=== PATIENT | female | born 1945 | race Caucasian/White ===

== ENCOUNTER 2022-11-06 12:42 | Inpatient (IN) | payer OTHER ==
--- OUTSIDE RECORDS SUMMARY | 2022-11-06 12:49 | XMS REPORT | Continuity of Care Document ---
:1945 Author Organization [facility] t Address [address] [place] [address] Dr. Ar[address]. [address] [place] [address] Care Team Providers Name Role Phone MAXI SIBLEY Primary Care Physician Unavailable SADI VILLEAGS Attending Clinician Unavailable VICK HART Attending Clinician Unavailable VICK HART Attending Clinician Unavailable JAMEEL DAWN Attending Clinician Unavailable Patti Schmitz Kelcey Attending Clinician Unavailable MAGALY CALDERON Attending Clinician Unavailable Edmundo BOYD, Katie Winston Attending Clinician Unavailable JEFFERY ODOM Attending Clinician Unavailable Jeffery Odom MD Attending Clinician Irlanda Sky DO Attending Clinician ENRICO GEORGE Attending Clinician Unavailable Counseling, 1st Floor Financial Attending Clinician UnavailEnrico Donald MD Attending Clinician Sadi Villegas MD Attending Clinician Doctor Unassigned, [place] Attending Clinician Unavailable Magaly Vázquez Attending Clinician Mary Camara Attending Clinician JO ANN SCHMITZ Attending Clinician Unavailable Jo Ann Schmitz DO Attending Clinician Only, Adc Test Attending Clinician Unavailable MELVI PETERSEN Attending Clinician Unavailable Melvi Garcia Attending Clinician VIVIEN BANEGAS Attending Clinician Unavailable MAXI SIBLEY Attending Clinician Unavailable Maxi Suarez Attending Clinician IRLANDA SKY Attending Clinician Unavailable Oksana Jimenez Attending Clinician Dave Mo MD Attending Clinician Lab, Ang - Db Attending Clinician Unavailable ORIN RANKIN Attending Clinician Unavailable Brown CLINICAL SALES CONSULTANT, Deyanira K Attending Clinician Unavailable Orin Rankin MD Attending Clinician Oswaldo PT, Sangeeta Weber Attending Clinician Unavailable Vishal Dillard PT, Carie Attending Clinician Unavailable Lauren Gray MD Attending Clinician LAUREN GRAY Attending Clinician Unavailable SARA ARAGON Attending Clinician Unavailable MARY HAMILTON Attending Clinician Unavailable IRMA ANTONIO Attending Clinician Unavailable IRMA ANTONIO Attending Clinician Unavailable FOREST RIBEIRO Attending Clinician Unavailable ADA HERNANDEZ Attending Clinician Unavailable KAROLYN ASTORGA Attending Clinician Unavailable LOIS DYKES Attending Clinician Unavailable SADI VILLEGAS Admitting Clinician Unavailable VICK HART Admitting Clinician Unavailable JAMEEL DAWN Admitting Clinician Unavailable Patti Schmitz Kelcey Admitting Clinician Unavailable IRLANDA SKY Admitting Clinician Unavailable Irlanda Sky DO Admitting Clinician JO ANN SCHMITZ Admitting Clinician Unavailable MELVI PETERSEN Admitting Clinician Unavailable DAVE MO Admitting Clinician Unavailable Dave Mo MD Admitting Clinician MARY HAMILTON Admitting Clinician Unavailable LOIS DYKES Admitting Clinician Unavailable Payers Payer Name Policy Type Policy Number Effective Date Expiration Date S [place] MEDICARE PART A [id number] 2011 \\T\\ B 00:00:00 [facility] [id number] Problems Condition Condition Condition Status Onset Resolution Last Treating Co mments Source Name Details Category Date Date Treatment Clinician Date 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 Added automatic ally from request for surgery [id number] Fall, Fall, Disease Active 2021-11 Univers initial initial 2-08 [place] Primary Primary Disease Active Univers hypertensi hypertensi 9-06 it y of on on 00:00: [place] [facility] PAD PAD Disease Active Univers (periphera (periphera 7-15 it y of l artery l artery 00:00: [place] disease) disease) 00 Medica l Branch Athscl Athscl Disease Active Univers [place] 7-15 ity of arteries arteries 00:00: [place] of right of right 00 Medica l leg w leg w Branch ulcer oth ulcer oth prt foot prt foot Acute Acute Disease Active Univers hematogeno hematogeno 7-15 it y of us us 00:00: [place] osteomyeli osteomyeli 00 Me dical tis, tis, Branch unspecifie unspecifie d site d site Open wound Open wound Disease Active U nivers of right of right 7-06 ity of foot, foot, 00:00: [place] subsequent subsequent 00 Me dical encounter encounter [facility] Disease Active Unive rs discharge discharge 7-06 ity of follow-up follow-up 00:[place] [facility] [place] Cellulitis Cellulitis Disease Active U nivers of right of right 6-26 ity of foot foot 00:00: [place] 00 Medical Branch Dementia Dementia Disease Active Unive rs without without 4-18 ity of behavioral behavioral [place] disturb[place] disturbanc 00 Me dical e, e, Branch unspecifie unspecifie d dementia d dementia type type Screening Screening Disease Active Uni vers for for 4-18 ity of thyroid thyroid 00:00: [place] disorder disorder 00 Medica l Branch COVID-19 COVID-19 Disease Active Unive rs ruled out ruled out 4-18 ity of by by 00:00: [place] laboratory laboratory 00 Me dical testing testing Branch History of History of Disease Active U nivers skin skin 7-21 ity of cancer cancer 00:00: [place] [facility] History of History of Disease Active U nivers alcohol alcohol 7-21 ity of abuse abuse 00:00: [place] 00 [facility] Branch 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 7-11 it y of 00:00: [place] [facility] Memory Memory Disease Active Univers impairment impairment it y of [facility] Arthritis Arthritis Disease Active Uni vers ity of [facility] Hearing Hearing Disease Active Univers loss loss ity of [facility] Hypertensi Hypertensi Disease Active U nivers on on ity of [facility] Allergies, Adverse Reactions, Alerts Allergy Allergy Status Severity Reaction(s) Onset Inactive Treating Comm ents Source Name Type Date Date Clinician NO KNOWN Drug Active Univers ALLERGIE Class ity of S [facility] Social History Social Habit Start Date Stop Date Quantity Comments Source History [facility] o f Alcohol Frequency [facility] edical Branch Exposure to 2022-10-08 2022-10-18 Not sure [facility] SARS-CoV-2 00:00:00 08:16:00 [facility] (event) [place] Alcohol intake 2022-10-18 2022-10-18 3 /d University of 00:00:00 00:00:00 [facility] Tobacco use and 2021-09-05 2021-09-05 Smokeless tobacco Un iversity of exposure 00:00:00 00:00:00 non-user [facility] Alcohol Comment 2021-03-14 2021-03-14 1 drinks, once a Uni versity of 00:00:00 00:00:[address] [facility] drinking 2 years Branch ago. History [facility] 2019-05-15 2019-05-15 5 University o f Alcohol Std 00:00:00 00:00:00 [place] Medical Drinks Branch History [facility] 2019-05-15 2019-05-15 4 University o f Alcohol Binge 00:00:00 00:00:00 [place] Medic al Branch History of 1999-05-15 Cigarette Smoker Universi ty of tobacco use 00:00:00 [facility] Sex [birth year] Universit y of 00:00:00 00:00:00 [facility] Smoking Status Start Date Stop Date Source Ex-smoker 2021-09-05 00:00:00 2021-09-05 00:00:00 Universi ty of [facility] Medications Ordered Filled Start Stop Current Ordering Indication Dosage Frequency Signature Comments Components Source Medication Medication Date Date Medication? Clinician (SIG) Name Name rivastigmin 2021-11 Yes 4.5mg 4.5 mg, Un zac e tartrate 12-20 Oral, ity of (EXELON) 15:00: QAM+PM, [place] capsule 4.5 00 First dose Me dical mg on Sat10/19/22 at 0900, Until Discontinu ed losartan 2021-11 Yes 50mg 50 mg, Univers (COZAAR) 2 Oral, ity of tablet 50 15:00: DAILY, [place] mg 00 First dose Medical on Sat10/19/22 at 0900, Until Discontinu ed, Routine collagenase 2021-11 Yes Topical Uni vers (SANTYL) 12-20 (Apply To ity of ointment 15:00: Affected [place] 00 Areas), Medical DAILY, Branch First dose on Sat10/19/22 at 0900, Until Discontinu ed, Routine cholecalcif 2021-11 Yes 5000U 5,000 Univ ers barbara 2 Units, ity of (vitamin 15:00: Oral, [place] D3) tablet 00 DAILY, Medical 5,000 Units First dose Br anch on Sat10/19/22 at 0900, Until Discontinu ed amLODIPine 2021-11 Yes 5mg 5 mg, Univer s (NORVASC) 2 Oral, ity of tablet 5 mg 15:00: [place]ILY, [place] 00 First dose Medical on Sat10/19/22 at 0900, Until Discontinu ed, Routine docusate 2021-11 Yes 100mg 100 mg, Unive rs (COLACE) 209 Oral, ity of capsule 100 15:00: DAILY, [place] mg 00 First dose Medical on Sat10/19/22 at 0900, Until Discontinu ed, Routine enoxaparin 2021-11 Yes 40mg 40 mg, Unive rs (LOVENOX) 2 Subcutaneo ity of injection 15:00: [place]ILY, [place] 40 mg 00 First dose Medical on Sat10/19/22 at 0900, Until Discontinu ed, Routine NaCl 0.9% 2021-11 No 1000mL at 75 Univ ers (NS) IV 12-20 12-09 mL/hr, IV ity of infusion 14:45: 18:59 Infusion, [place] as 1,000 mL 00 :00 CONTINUOUS Medic al , Starting Branch on Sat10/19/22 at 0845, Until Sat10/19/22 at 1259, Routine lactobacill 2021-11 Yes .5mg 0.5 mg, Uni vers us 209 Oral, BID, ity of acidophilus 14:00: First dose [place] tablet 0.5 00 on Fri Medical mg 10/19/22 at Branch 0800, Until Discontinu ed cilostazoL 2021-11 Yes 50mg 50 mg, Unive rs (PLETAL) 2 Oral, BID, ity o f tablet 50 14:00: [place] mg 00 on Sat Medical 10/19/22 at Branch 0800, Until Discontinu ed, Routine HYDROcodone 2021-11 Yes 1{tbl} 1 tablet, Univers -acetaminop 12-20 Oral, ity of hen (NORCO) 00:08: Q6HPRN, [place] as 10-325 mg 12 Starting Medica l tablet 1 on [facility] Branch tablet 10/18/22 at 1808, Until Discontinu ed, Routine, Pain (scale 7-10) traMADoL 2021-11- Yes 50mg 50 mg, Univer s (ULTRAM) 12-20 12-11 Oral, ity of tablet 50 00:08: 00:07 Q8HPRN, [place] mg 06 :06 Starting Medical on Kadi Branch 10/18/22 at 1808, Until 10/20/22 at 1807, Routine, Pain (scale 4-6) acetaminoph 2021-11 Yes 650mg 650 mg, Un zac en 209 Oral, ity of (TYLENOL) 00:08: Q6HPRN, [place] tablet 650 01 Starting Medic al mg on Kadi Branch 10/18/22 at 1808, Until Discontinu ed, Routine, Pain (scale 1-3) NaCl 0.9% 2021-11- No 1000mL at 100 Uni vers (NS) IV 12-19 12-09 mL/hr, IV ity of infusion 19:00: 14:40 Infusion, [place] as 1,000 mL 00 :21 CONTINUOUS Medic al , Starting Branch on Kadi 10/18/22 at 1300, Until Sat10/19/22 at 0840, Routine iopamidol 2021-11- No [id number] 90mL 90 mL, Un zac (ISOVUE 12-19 12-08 Intravenou ity o f 370-500 mL) 16:45: 16:45 s, ONCE, 1 [place] injection 00 :00 dose, On Medica l 90 mL [place] Branch 10/18/22 at 1045, Routine NaCl 0.9% 2021-11- No 1000mL at 999 Uni vers (NS) bolus 12-19 12-08 mL/hr, ity of infusion 15:15: 21:08 1,000 mL, [place] as 1,000 mL 00 :00 IV Medical Piggyback, Branch ONCE, 1 dose, On Kadi 10/18/22 at 0915, STAT peg-electro 2021-11 Yes Take as Uni vers lyte soln 1-29 directed ity of 236-22.74-6 00:00: [place] .74 -5.86 00 colonoscop Medi joanne gram y Branch solution peg-electro 2021-11 Yes Take as Uni vers lyte soln -29 directed ity of 236-22.74-6 00:00: [place] .74 -5.86 00 colonoscop Medi joanne gram y Branch solution peg-electro 2021-11 Yes Take as Uni vers lyte soln 1-29 directed ity of 236-22.74-6 00:00: [place] .74 -5.86 00 colonoscop Medi joanne gram y Branch solution peg-electro 2021-11 Yes Take as Uni vers lyte soln -29 directed ity of 236-22.74-6 00:00: [place] .74 -5.86 00 colonoscop Medi joanne gram y Branch solution peg-electro 2021-11 Yes Take as Uni vers lyte soln -29 directed ity of 236-22.74-6 00:00: [place] .74 -5.86 00 colonoscop Medi joanne gram y Branch solution LOSARTAN 50 2021-11 Yes [id number] TAKE ONE Univers mg tablet 0-11 TABLET BY ity o f 00:00: MOUTH DAILY Medical Branch AMLODIPINE 2021-11 Yes [id number] TAKE ONE Univers 5 mg tablet 0-11 TABLET BY ity of 00:00: MOUTH DAILY Medical Branch LOSARTAN 50 2021-11 Yes [id number] TAKE ONE Univers mg tablet 0-11 TABLET BY ity o f 00:00: MOUTH [place] DAILY Medical Branch AMLODIPINE 2021-11 Yes [id number] TAKE ONE Univers 5 mg tablet 0-11 TABLET BY ity of 00:00: MOUTH [place] DAILY Medical Branch LOSARTAN 50 2021-11 Yes [id number] TAKE ONE Univers mg tablet 0-11 TABLET BY ity o f 00:00: MOUTH DAILY Medical Branch AMLODIPINE 2021-11 Yes [id number] TAKE ONE Univers 5 mg tablet 0-11 TABLET BY ity of 00:00: MOUTH [place] DAILY Medical Branch LOSARTAN 50 2021-11 Yes [id number] TAKE ONE Univers mg tablet 0-11 TABLET BY ity o f 00:00: MOUTH DAILY Medical Branch AMLODIPINE 2021-11 Yes [id number] TAKE ONE Univers 5 mg tablet 0-11 TABLET BY ity of 00:00: MOUTH DAILY Medical Branch LOSARTAN 50 2021-11 Yes [id number] TAKE ONE Univers mg tablet 0-11 TABLET BY ity o f 00:00: MOUTH DAILY Medical Branch AMLODIPINE 2021-11 Yes [id number] TAKE ONE Univers 5 mg tablet 0-11 TABLET BY ity of 00:00: MOUTH DAILY Medical Branch LOSARTAN 50 2021-11 Yes [id number] TAKE ONE Univers mg tablet 0-11 TABLET BY ity o f 00:00: MOUTH DAILY Medical Branch AMLODIPINE 2021-11 Yes [id number] TAKE ONE Univers 5 mg tablet 0-11 TABLET BY ity of 00:00: MOUTH DAILY Medical Branch LOSARTAN 50 2021-11 Yes [id number] TAKE ONE Univers mg tablet 0-11 TABLET BY ity o f 00:00: MOUTH DAILY Medical Branch AMLODIPINE 2021-11 Yes [id number] TAKE ONE Univers 5 mg tablet 0-11 TABLET BY ity of 00:00: MOUTH DAILY Medical Branch LOSARTAN 50 2021-11 Yes [id number] TAKE ONE Univers mg tablet 0-11 TABLET BY ity o f 00:00: MOUTH [place] DAILY Medical Branch AMLODIPINE 2021-11 Yes [id number] TAKE ONE Univers 5 mg tablet 0-11 TABLET BY ity of 00:00: MOUTH DAILY Medical Branch LOSARTAN 50 2021-11 Yes [id number] TAKE ONE Univers mg tablet 0-11 TABLET BY ity o f 00:00: MOUTH DAILY Medical Branch AMLODIPINE 2021-11 Yes [id number] TAKE ONE Univers 5 mg tablet 0-11 TABLET BY ity of 00:00: MOUTH DAILY Medical Branch LOSARTAN 50 2021-11 Yes [id number] TAKE ONE Univers mg tablet 0-11 TABLET BY ity o f 00:00: MOUTH DAILY Medical Branch AMLODIPINE 2021-11 Yes [id number] TAKE ONE Univers 5 mg tablet 0-11 TABLET BY ity of 00:00: DAILY Medical Branch LOSARTAN 50 2021-11 Yes [id number] TAKE ONE Univers mg tablet 0-11 TABLET BY ity o f 00:00: MOUTH DAILY Medical Branch AMLODIPINE 2021-11 Yes [id number] TAKE ONE Univers 5 mg tablet 0-11 TABLET BY ity of 00:00: DAILY Medical Branch LOSARTAN 50 2021-11 Yes [id number] TAKE ONE Univers mg tablet 0-11 TABLET BY ity o f 00:00: DAILY Medical Branch AMLODIPINE 2021-11 Yes [id number] TAKE ONE Univers 5 mg tablet 0-11 TABLET BY ity of 00:00: DAILY Medical Branch LOSARTAN 50 2021-11 Yes [id number] TAKE ONE Univers mg tablet 0-11 TABLET BY ity o f 00:00: DAILY Medical Branch AMLODIPINE 2021-11 Yes [id number] TAKE ONE Univers 5 mg tablet 0-11 TABLET BY ity of 00:00: DAILY Medical Branch LOSARTAN 50 2021-11 Yes [id number] TAKE ONE Univers mg tablet 0-11 TABLET BY ity o f 00:00: DAILY Medical Branch AMLODIPINE 2021-11 Yes [id number] TAKE ONE Univers 5 mg tablet 0-11 TABLET BY ity of 00:00: DAILY Medical Branch LOSARTAN 50 2021-11 Yes [id number] TAKE ONE Univers mg tablet 0-11 TABLET BY ity o f 00:00: MOUTH DAILY Medical Branch AMLODIPINE 2021-11 Yes [id number] TAKE ONE Univers 5 mg tablet 0-11 TABLET BY ity of 00:00: MOUTH DAILY Medical Branch LOSARTAN 50 2021-11 Yes [id number] TAKE ONE Univers mg tablet 0-11 TABLET BY ity o f 00:00: DAILY Medical Branch AMLODIPINE 2021-11 Yes [id number] TAKE ONE Univers 5 mg tablet 0-11 TABLET BY ity of 00:00: MOUTH [place] DAILY Medical Branch LOSARTAN 50 2021- Yes [id number] TAKE ONE Univers mg tablet 0-11 TABLET BY ity o f 00:00: MOUTH [place] DAILY Medical Branch AMLODIPINE 2021- Yes [id number] TAKE ONE Univers 5 mg tablet 0-11 TABLET BY ity of 00:00: MOUTH [place] DAILY Medical Branch LOSARTAN 50 2021- Yes [id number] TAKE ONE Univers mg tablet 0-11 TABLET BY ity o f 00:00: MOUTH [place] DAILY Medical Branch AMLODIPINE 2021- Yes [id number] TAKE ONE Univers 5 mg tablet 0-11 TABLET BY ity of 00:00: MOUTH [place] DAILY Medical Branch cilostazoL 2021-11 Yes [id number] 50mg Take 1 Univers 50 mg 0-06 tablet by ity of tablet 00:00: mouth in [place] the Medical morning Branch and 1 tablet in the evening. cilostazoL 2021-11 Yes [id number] 50mg Take 1 Univers 50 mg 0-06 tablet by ity of tablet 00:00: mouth in [place] the Medical morning Branch and 1 tablet in the evening. cilostazoL 2021-11 Yes [id number] 50mg Take 1 Univers 50 mg 0-06 tablet by ity of tablet 00:00: mouth in [place] the Medical morning Branch and 1 tablet in the evening. cilostazoL 2021-11 Yes [id number] 50mg Take 1 Univers 50 mg 0-06 tablet by ity of tablet 00:00: mouth in [place] the Medical morning Branch and 1 tablet in the evening. cilostazoL 2021-11 Yes [id number] 50mg Take 1 Univers 50 mg 0-06 tablet by ity of tablet 00:00: mouth in [place] the Medical morning Branch and 1 tablet in the evening. cilostazoL 2021-11 Yes [id number] 50mg Take 1 Univers 50 mg 0-06 tablet by ity of tablet 00:00: mouth in [place] the Medical morning Branch and 1 tablet in the evening. cilostazoL 2021-11 Yes [id number] 50mg Take 1 Univers 50 mg 0-06 tablet by ity of tablet 00:00: mouth in [place] the Medical morning Branch and 1 tablet in the evening. cilostazoL 2021-11 Yes [id number] 50mg Take 1 Univers 50 mg 0-06 tablet by ity of tablet 00:00: mouth in [place] 00 the Medical morning Branch and 1 tablet in the evening. cilostazoL 2021-11 Yes [id number] 50mg Take 1 Univers 50 mg 0-06 tablet by ity of tablet 00:00: mouth in [place] 00 the Medical morning Branch and 1 tablet in the evening. cilostazoL 2021-11 Yes [id number] 50mg Take 1 Univers 50 mg 0-06 tablet by ity of tablet 00:00: mouth in [place] 00 the Medical morning Branch and 1 tablet in the evening. cilostazoL 2021-11 Yes [id number] 50mg Take 1 Univers 50 mg 0-06 tablet by ity of tablet 00:00: mouth in [place] [address] the Medical morning Branch and 1 tablet in the evening. cilostazoL 2021-11 Yes [id number] 50mg Take 1 Univers 50 mg 0-06 tablet by ity of tablet 00:00: mouth in [place] [address] the Medical morning Branch and 1 tablet in the evening. cilostazoL 2021-11 Yes [id number] 50mg Take 1 Univers 50 mg 0-06 tablet by ity of tablet 00:00: mouth in [place] [address] the Medical morning Branch and 1 tablet in the evening. cilostazoL 2021-11 Yes [id number] 50mg Take 1 Univers 50 mg 0-06 tablet by ity of tablet 00:00: mouth in [place] [address] the Medical morning Branch and 1 tablet in the evening. cilostazoL 2021-11 Yes [id number] 50mg Take 1 Univers 50 mg 0-06 tablet by ity of tablet 00:00: mouth in [place] [address] the Medical morning Branch and 1 tablet in the evening. cilostazoL 2021-11 Yes [id number] 50mg Take 1 Univers 50 mg 0-06 tablet by ity of tablet 00:00: mouth in [place] [address] the Medical morning Branch and 1 tablet in the evening. cilostazoL 2021-11 Yes [id number] 50mg Take 1 Univers 50 mg 0-06 tablet by ity of tablet 00:00: mouth in [place] [address] the Medical morning Branch and 1 tablet in the evening. cilostazoL 2021-11 Yes [id number] 50mg Take 1 Univers 50 mg 0-06 tablet by ity of tablet 00:00: mouth in [place] [address] the Medical morning Branch and 1 tablet in the evening. cilostazoL 2021-11 Yes [id number] 50mg Take 1 Univers 50 mg 0-06 tablet by ity of tablet 00:00: mouth in [place] [address] the [facility] morning [place] and 1 tablet in the evening. cilostazoL 2021-11 Yes [id number] 50mg Take 1 Univers 50 mg 0-06 tablet by ity of tablet 00:00: mouth in [place] [address] the [facility] morning [place] and 1 tablet in the evening. cilostazoL 2021-11 Yes [id number] 50mg Take 1 Univers 50 mg 0-06 tablet by ity of tablet 00:00: mouth in [place] [address] the [facility] and 1 tablet in the evening. iopamidol 2021- No [id number] 56mL 56 mL, U nivers (ISOVUE 08-02 Intravenou ity o f 370-500 mL) 14:33: 14:34 s, ONCE, 1 [place] injection 00 :00 dose, On Medica l 56 mL [place] Branch 08/02/22 at 0945, Routine pantoprazol 2021- No 40mg 40 mg, Uni vers e 08-02 Slow IV ity of (PROTONIX) 13:45: 13:35 Push, [place] injection 00 :00 ONCE, 1 Medical 40 mg dose, On Branch Kadi 08/02/22 at 0845 omeprazole 2021-0 2- No [id number] 20mg Take 1 Univers 20 mg 9-22 10-23 capsule by ity of capsule 00:00: 04:59 mouth in [place] 00 :00 [facility] for 30 days. omeprazole 2021-0 2- No [id number] 20mg Take 1 Univers 20 mg 9-22 10-23 capsule by ity of capsule 00:00: 04:59 mouth in [place] 00 :00 [facility] for 30 days. omeprazole 2-0 2022- No [id number] 20mg Take 1 Univers 20 mg 9-22 10-23 capsule by ity of capsule 00:00: 04:59 mouth in [place] 00 :00 [facility] for 30 days. omeprazole 2-0 2022- No [id number] 20mg Take 1 Univers 20 mg 9-22 10-23 capsule by ity of capsule 00:00: 04:59 mouth in [place] 00 :00 [facility] for 30 days. omeprazole 2021- No [id number] 20mg Take 1 Univers 20 mg 08-02 capsule by ity of capsule 00:00: 04:59 mouth in [place] 00 :00 the Medical morning Branch for 30 days. lactated 0 Yes 1000mL at 75 Univer s ringers IV 9-06 mL/hr, ity of infusion 16:15: 1,000 mL, [place] 1,000 mL 00 IV Medical Infusion, Branch CONTINUOUS , Starting on Sat07/17/22 at 1115, Until Discontinu ed, Routine, PACU lactated 2021- No 1000mL at 75 Unive rs ringers IV 07-17 09-07 mL/hr, ity of infusion 16:15: 00:57 1,000 mL, [place] as 1,000 mL 00 :01 IV Medical Infusion, Branch CONTINUOUS , Starting on Sat07/17/22 at 1115, Until Sat07/17/22 at 1957, Routine, PACU FENTanyl PF Yes 25ug 25 mcg, Uni vers (SUBLIMAZE 07-17 Slow IV ity of (PF)) 16:11: Push, [place] injection 36 Q5MIN PRN, Medi joanne 25 mcg 4 doses, Branch Starting on Sat07/17/22 at 1111, Until Discontinu ed, Routine, Pain (scale 4-6), PACU ondansetron Yes 4mg 4 mg, Slow Univers (ZOFRAN 07-17 IV Push, ity of (PF)) 16:11: PRN, 1 [place] injection 4 36 dose, Medical mg Starting Branch on Sat07/17/22 at 1111, Until Discontinu ed, Routine, Nausea and Vomiting (N/V), PACU FENTanyl PF 2021- No 25ug 25 mcg, Un zac (SUBLIMAZE 07-1707 Slow IV ity o f (PF)) 16:11: 00:57 [place], [place] injection 36 :01 Q5MIN PRN, Medi joanne 25 mcg 4 doses, Branch Starting on Sat07/17/22 at 1111, Until Sat07/17/22 at 1957, Routine, Pain (scale 4-6), PACU ondansetron 2021- No 4mg 4 mg, Slow Univers (ZOFRAN 07-17 IV Push, ity of (PF)) 16:11: 00:57 PRN, 1 [place] injection 4 36 :01 dose, Medical mg Starting Branch on Sat07/17/22 at 1111, Until Sat07/17/22 at 1957, Routine, Nausea and Vomiting (N/V), PACU iodixanoL 2021- No PRN, Univers (VISIPAQUE 07-17 Starting ity of 270-150 mL) 15:20: 20:22 on Tue [place] as injection 00 :52 07/17/22 at Medic al 1020, Branch Until Sat07/17/22 at 1522, Routine, Intra-op heparin 2021- No PRN, Univers 1,000 07-17 Starting ity of unit/mL 15:17: 20:22 on e [place] 10,000 00 :52 07/17/22 at Medical Units in 1017, Branch NaCl 0.9% Intra-op (NS) 1,000 mL OR irrigation lidocaine 2021- No PRN, Univers 1% (PF) 07-17 Starting ity of (XYLOCAINE) 15:16: 20:22 on Tue [place] as injection 00 :52 07/17/22 at Medic al 1016, Branch Until Sat07/17/22 at 1522, Routine, Intra-op collagenase Yes [id number] Apply to Univers 250 6-29 [id number] affected ity of unit/gram 00:00: area(s) [place] ointment 00 daily. Medical Branch collagenase Yes [id number] Apply to Univers 250 6-29 [id number] affected ity of unit/gram 00:00: area(s) [place] ointment 00 daily. Medical Branch collagenase Yes [id number] Apply to Univers 250 6-29 [id number] affected ity of unit/gram 00:00: area(s) [place] ointment 00 daily. Medical Branch collagenase Yes [id number] Apply to Univers 250 6-29 [id number] affected ity of unit/gram 00:00: area(s) [place] ointment 00 daily. Medical Branch collagenase Yes [id number] Apply to Univers 250 6-29 [id number] affected ity of unit/gram 00:00: area(s) [place] ointment 00 daily. Medical Branch collagenase 2021-0 Yes [id number] Apply to Univers 250 6-29 [id number] affected ity of unit/gram 00:00: area(s) [place] ointment 00 daily. Medical Branch collagenase 2021-0 Yes [id number] Apply to Univers 250 6-29 [id number] affected ity of unit/gram 00:00: area(s) [place] ointment 00 daily. [facility] collagenase Yes [id number] Apply to [facility] 250 6-29 [id number] affected ity of unit/gram 00:00: area(s) [place] ointment 00 daily. [facility] collagenase 2021-0 Yes [id number] Apply to [facility] 250 6-29 [id number] affected [facility] of unit/gram 00:00: area(s) [place] ointment 00 daily. [facility] collagenase 2021- Yes [id number] Apply to [facility] 250 6-29 [id number] affected [facility]y of unit/gram 00:00: area(s) [place] ointment 00 daily. [facility] collagenase 2021- Yes [id number] Apply to [facility] 250 6-29 [id number] affected [facility]y of unit/gram 00:00: area(s) [place] ointment 00 daily. [facility] collagenase 2021-0 Yes [id number] Apply to [facility] 250 6-29 [id number] affected [facility]y of unit/gram 00:00: area(s) [place] ointment 00 daily. [facility] collagenase 2021- Yes [id number] Apply to [facility] 250 6-29 [id number] affected [facility]y of unit/gram 00:00: area(s) [place] ointment 00 daily. [facility] collagenase 2021-0 Yes [id number] Apply to [facility] 250 6-29 [id number] affected [facility]y of unit/gram 00:00: area(s) [place] ointment 00 daily. [facility] collagenase 2021-0 Yes [id number] Apply to [facility] 250 6-29 [id number] affected [facility]y of unit/gram 00:00: area(s) [place] ointment 00 daily. [facility] collagenase 2021-0 Yes [id number] Apply to [facility] 250 6-29 [id number] affected [facility]y of unit/gram 00:00: area(s) [place] ointment 00 daily. [facility] collagenase 2021-0 Yes [id number] Apply to [facility] 250 6-29 [id number] affected [facility]y of unit/gram 00:00: area(s) [place] ointment 00 daily. [facility] collagenase 2021-0 Yes [id number] Apply to [facility] 250 6-29 [id number] affected [facility]y of unit/gram 00:00: area(s) [place] ointment 00 daily. [facility] collagenase 2021- Yes [id number] Apply to [facility] 250 6-29 [id number] affected [facility]y of unit/gram 00:00: area(s) [place] ointment 00 daily. [facility] collagenase Yes [id number] Apply to [facility] 250 6-29 [id number] affected [facility]y of unit/gram 00:00: area(s) [place] ointment 00 daily. [facility] collagenase 2021- Yes [id number] Apply to [facility] 250 6-29 [id number] affected [facility]y of unit/gram 00:00: area(s) [place] ointment 00 daily. [facility] collagenase 2021- Yes [id number] Apply to [facility] 250 6-29 [id number] affected [facility]y of unit/gram 00:00: area(s) [place] ointment 00 daily. [facility] collagenase 2021- Yes [id number] Apply to [facility] 250 6-29 [id number] affected [facility]y of unit/gram 00:00: area(s) [place] ointment 00 daily. [facility] collagenase 2021- Yes [id number] Apply to [facility] 250 6-29 [id number] affected [facility]y of unit/gram 00:00: area(s) [place] ointment 00 daily. [facility] collagenase 2021-0 Yes [id number] Apply to [facility] 250 6-29 [id number] affected [facility]y of unit/gram 00:00: area(s) [place] ointment 00 daily. [facility] collagenase 2021-0 Yes [id number] Apply to [facility] 250 6-29 [id number] affected [facility]y of unit/gram 00:00: area(s) [place] ointment 00 daily. [facility] collagenase 2021-0 Yes [id number] Apply to [facility] 250 6-29 [id number] affected [facility]y of unit/gram 00:00: area(s) [place] ointment 00 daily. [facility] collagenase 2021-0 Yes [id number] Apply to [facility] 250 6-29 [id number] affected [facility]y of unit/gram 00:00: area(s) [place] ointment 00 daily. [facility] amLODIPine 2021-0 Yes [id number] 5mg Take 1 [facility] 5 mg tablet 4-18 tablet by ity of 00:00: mouth [place] 00 daily. [facility] losartan 50 2021-0 Yes [id number] 50mg Take 1 [facility] mg tablet 4-18 tablet by ity o f 00:00: mouth [place] 00 daily. [facility] amLODIPine 2-0 Yes [id number] 5mg Take 1 [facility] 5 mg tablet 4-18 tablet by ity of 00:00: mouth [place] 00 daily. [facility] losartan 50 2021-0 Yes [id number] 50mg Take 1 [facility] mg tablet 4-18 tablet by ity o f 00:00: mouth [place] 00 daily. [facility] amLODIPine 2-0 Yes [id number] 5mg Take 1 [facility] 5 mg tablet 4-18 tablet by ity of 00:00: mouth [place] 00 daily. [facility] losartan 50 2021-0 Yes [id number] 50mg Take 1 [facility] mg tablet 4-18 tablet by ity o f 00:00: mouth [place] 00 daily. [facility] amLODIPine 2021-0 Yes [id number] 5mg Take 1 [facility] 5 mg tablet 4-18 tablet by ity of 00:00: mouth [place] 00 daily. [facility] losartan 50 2021-0 Yes [id number] 50mg Take 1 [facility] mg tablet 4-18 tablet by ity o f 00:00: mouth [place] 00 daily. [facility] amLODIPine 2-0 Yes [id number] 5mg Take 1 [facility] 5 mg tablet 4-18 tablet by ity of 00:00: mouth [place] 00 daily. [facility] losartan 50 2021-0 Yes [id number] 50mg Take 1 [facility] mg tablet 4-18 tablet by ity o f 00:00: mouth [place] 00 daily. [facility] amLODIPine 2-0 Yes [id number] 5mg Take 1 [facility] 5 mg tablet 4-18 tablet by ity of 00:00: mouth [place] 00 daily. [facility] losartan 50 2-0 Yes [id number] 50mg Take 1 [facility] mg tablet 4-18 tablet by ity o f 00:00: mouth [place] 00 daily. [facility] amLODIPine 2-0 Yes [id number] 5mg Take 1 [facility] 5 mg tablet 4-18 tablet by ity of 00:00: mouth [place] 00 daily. [facility] losartan 50 2021-0 Yes [id number] 50mg Take 1 [facility] mg tablet 4-18 tablet by ity o f 00:00: mouth [place] 00 daily. [facility] amLODIPine 2021-0 Yes [id number] 5mg Take 1 [facility] 5 mg tablet 4-18 tablet by ity of 00:00: mouth [place] 00 daily. [facility] losartan 50 2021-0 Yes [id number] 50mg Take 1 [facility] mg tablet 4-18 tablet by ity o f 00:00: mouth [place] 00 daily. [facility] amLODIPine 2021-0 Yes [id number] 5mg Take 1 [facility] 5 mg tablet 4-18 tablet by ity of 00:00: mouth [place] 00 daily. [facility] losartan 50 2021-0 Yes [id number] 50mg Take 1 [facility] mg tablet 4-18 tablet by ity o f 00:00: mouth [place] 00 daily. [facility] amLODIPine 2021-0 Yes [id number] 5mg Take 1 [facility] 5 mg tablet 4-18 tablet by ity of 00:00: mouth [place] 00 daily. [facility] losartan 50 2021-0 Yes [id number] 50mg Take 1 [facility] mg tablet 4-18 tablet by ity o f 00:00: mouth [place] 00 daily. [facility] amLODIPine 2021-0 2- No [id number] 5mg Take 1 [facility] 5 mg tablet 4-18 10-11 tablet by it y of 00:00: 00:00 mouth [place] 00 :00 daily. [facility] losartan 50 2021-0 2022- No [id number] 50mg Take 1 [facility] mg tablet 4-18 10-11 tablet by ity of 00:00: 00:00 mouth [place] 00 :00 daily. [facility] rivastigmin 2020-0 Yes [id number] 1{patch Apply 1 [facility] e 4.6 mg/24 5-07 } Patch to ity of hour patch 00:00: skin [place] 00 daily. [facility] rivastigmin 2020-0 Yes [id number] 1{patch Apply 1 [facility] e 4.6 mg/24 5-07 } Patch to ity of hour patch 00:00: skin [place] 00 daily. [facility] rivastigmin 2020-0 Yes [id number] 1{patch Apply 1 [facility] e 4.6 mg/24 5-07 } Patch to ity of hour patch 00:00: skin [place] 00 daily. [facility] rivastigmin Yes [id number] 1{patch Apply 1 [facility] e 4.6 mg/24 5-07 } Patch to ity of hour patch 00:00: skin [place] 00 daily. [facility] rivastigmin Yes [id number] 1{patch Apply 1 [facility] e 4.6 mg/24 5-07 } Patch to ity of hour patch 00:00: skin [place] 00 daily. [facility] rivastigmin Yes [id number] 1{patch Apply 1 [facility] e 4.6 mg/24 5-07 } Patch to ity of hour patch 00:00: skin [place] 00 daily. [facility] rivastigmin Yes [id number] 1{patch Apply 1 [facility] e 4.6 mg/24 5-07 } Patch to ity of hour patch 00:00: skin [place] 00 daily. [facility] rivastigmin Yes [id number] 1{patch Apply 1 [facility] e 4.6 mg/24 5-07 } Patch to ity of hour patch 00:00: skin [place] 00 daily. [facility] rivastigmin Yes [id number] 1{patch Apply 1 [facility] e 4.6 mg/24 5-07 } Patch to ity of hour patch 00:00: skin [place] 00 daily. [facility] rivastigmin Yes [id number] 1{patch Apply 1 [facility] e 4.6 mg/24 5-07 } Patch to ity of hour patch 00:00: skin [place] 00 daily. [facility] rivastigmin Yes [id number] 1{patch Apply 1 [facility] e 4.6 mg/24 5-07 } Patch to ity of hour patch 00:00: skin [place] 00 daily. [facility] rivastigmin Yes [id number] 1{patch Apply 1 [facility] e 4.6 mg/24 5-07 } Patch to ity of hour patch 00:00: skin [place] 00 daily. [facility] rivastigmin Yes [id number] 1{patch Apply 1 [facility] e 4.6 mg/24 5-07 } Patch to ity of hour patch 00:00: skin [place] 00 daily. [facility] rivastigmin Yes [id number] 1{patch Apply 1 [facility] e 4.6 mg/24 5-07 } Patch to ity of hour patch 00:00: skin [place] 00 daily. [facility] rivastigmin Yes [id number] 1{patch Apply 1 [facility] e 4.6 mg/24 5-07 } Patch to ity of hour patch 00:00: skin [place] 00 daily. [facility] rivastigmin Yes [id number] 1{patch Apply 1 [facility] e 4.6 mg/24 5-07 } Patch to ity of hour patch 00:00: skin [place] 00 daily. [facility] rivastigmin Yes [id number] 1{patch Apply 1 [facility] e 4.6 mg/24 5-07 } Patch to ity of hour patch 00:00: skin [place] 00 daily. [facility] rivastigmin Yes [id number] 1{patch Apply 1 [facility] e 4.6 mg/24 5-07 } Patch to ity of hour patch 00:00: skin [place] 00 daily. [facility] rivastigmin Yes [id number] 1{patch Apply 1 [facility] e 4.6 mg/24 5-07 } Patch to ity of hour patch 00:00: skin [place] 00 daily. [facility] rivastigmin Yes [id number] 1{patch Apply 1 [facility] e 4.6 mg/24 5-07 } Patch to ity of hour patch 00:00: skin [place] 00 daily. [facility] rivastigmin Yes [id number] 1{patch Apply 1 [facility] e 4.6 mg/24 5-07 } Patch to ity of hour patch 00:00: skin [place] 00 daily. [facility] rivastigmin Yes [id number] 1{patch Apply 1 [facility] e 4.6 mg/24 5-07 } Patch to ity of hour patch 00:00: skin [place] 00 daily. [facility] rivastigmin Yes [id number] 1{patch Apply 1 [facility] e 4.6 mg/24 5-07 } Patch to ity of hour patch 00:00: skin [place] 00 daily. [facility] rivastigmin Yes [id number] 1{patch Apply 1 [facility] e 4.6 mg/24 5-07 } Patch to ity of hour patch 00:00: skin [place] 00 daily. [facility] rivastigmin Yes [id number] 1{patch Apply 1 [facility] e 4.6 mg/24 5-07 } Patch to ity of hour patch 00:00: skin [place] 00 daily. [facility] rivastigmin 2020-0 Yes [id number] 1{patch Apply 1 [facility] e 4.6 mg/24 5-07 } Patch to ity of hour patch 00:00: skin [place] 00 daily. [facility] rivastigmin 1-0 Yes [id number] 1{patch Apply 1 [facility] e 4.6 mg/24 5-07 } Patch to ity of hour patch 00:00: skin [place] 00 daily. [facility] rivastigmin 2020-0 Yes [id number] 1{patch Apply 1 [facility] e 4.6 mg/24 5-07 } Patch to ity of hour patch 00:00: skin [place] 00 daily. [facility] Cholecalcif 2021-0 Yes [id number] 5000U Take 1 [facility] barbara, 5-05 tablet by ity of Vitamin D3, 00:00: mouth [place] (VITAMIN 00 daily. Medical D3) 125 mcg Branch (5,000 unit) tablet Cholecalcif 2021-0 Yes [id number] 5000U Take 1 [facility] barbara, 5-05 tablet by ity of Vitamin D3, 00:00: mouth [place] (VITAMIN 00 daily. Medical D3) 125 mcg Branch (5,000 unit) tablet Cholecalcif 2021-0 Yes [id number] 5000U Take 1 [facility] [place], 5-05 tablet by ity of Vitamin D3, 00:00: mouth [place] (VITAMIN 00 daily. Medical D3) 125 mcg Branch (5,000 unit) tablet Cholecalcif 2021-0 Yes [id number] 5000U Take 1 [facility] [place], 5-05 tablet by ity of Vitamin D3, 00:00: mouth [place] (VITAMIN 00 daily. Medical D3) 125 mcg Branch (5,000 unit) tablet Cholecalcif 2021-0 Yes [id number] 5000U Take 1 [facility] [place], 5-05 tablet by ity of Vitamin D3, 00:00: mouth [place] (VITAMIN 00 daily. Medical D3) 125 mcg Branch (5,000 unit) tablet Cholecalcif 2021-0 Yes [id number] 5000U Take 1 [facility] [place], 5-05 tablet by ity of Vitamin D3, 00:00: mouth [place] (VITAMIN 00 daily. Medical D3) 125 mcg Branch (5,000 unit) tablet Cholecalcif 2021-0 Yes [id number] 5000U Take 1 [facility] [place], 5-05 tablet by ity of Vitamin D3, 00:00: mouth [place] (VITAMIN 00 daily. Medical D3) 125 mcg Branch (5,000 unit) tablet Cholecalcif 2021-0 Yes [id number] 5000U Take 1 [facility] [place], 5-05 tablet by ity of Vitamin D3, 00:00: mouth [place] (VITAMIN 00 daily. Medical D3) 125 mcg Branch (5,000 unit) tablet Cholecalcif 2021-0 Yes [id number] 5000U Take 1 [facility] [place], 5-05 tablet by ity of Vitamin D3, 00:00: mouth [place] (VITAMIN 00 daily. Medical D3) 125 mcg Branch (5,000 unit) tablet Cholecalcif 2021-0 Yes [id number] 5000U Take 1 [facility] [place], 5-05 tablet by ity of Vitamin D3, 00:00: mouth [place] (VITAMIN 00 daily. Medical D3) 125 mcg Branch (5,000 unit) tablet Cholecalcif 2021-0 Yes [id number] 5000U Take 1 [facility] [place], 5-05 tablet by ity of Vitamin D3, 00:00: mouth [place] (VITAMIN 00 daily. Medical D3) 125 mcg Branch (5,000 unit) tablet Cholecalcif 2021-0 Yes [id number] 5000U Take 1 [facility] [place], 5-05 tablet by ity of Vitamin D3, 00:00: mouth [place] (VITAMIN 00 daily. Medical D3) 125 mcg Branch (5,000 unit) tablet Cholecalcif 2021-0 Yes [id number] 5000U Take 1 [facility] [place], 5-05 tablet by ity of Vitamin D3, 00:00: mouth [place] (VITAMIN 00 daily. Medical D3) 125 mcg Branch (5,000 unit) tablet Cholecalcif 2021-0 Yes [id number] 5000U Take 1 [facility] [place], 5-05 tablet by ity of Vitamin D3, 00:00: mouth [place] (VITAMIN 00 daily. Medical D3) 125 mcg Branch (5,000 unit) tablet Cholecalcif 2021-0 Yes [id number] 5000U Take 1 [facility] [place], 5-05 tablet by ity of Vitamin D3, 00:00: mouth [place] (VITAMIN 00 daily. Medical D3) 125 mcg Branch (5,000 unit) tablet Cholecalcif 2021-0 Yes [id number] 5000U Take 1 [facility] [place], 5-05 tablet by ity of Vitamin D3, 00:00: mouth [place] (VITAMIN 00 daily. Medical D3) 125 mcg Branch (5,000 unit) tablet Cholecalcif 2021-0 Yes [id number] 5000U Take 1 [facility] [place], 5-05 tablet by ity of Vitamin D3, 00:00: mouth [place] (VITAMIN 00 daily. Medical D3) 125 mcg Branch (5,000 unit) tablet Cholecalcif 2021-0 Yes [id number] 5000U Take 1 [facility] [place], 5-05 tablet by ity of Vitamin D3, 00:00: mouth [place] (VITAMIN 00 daily. Medical D3) 125 mcg Branch (5,000 unit) tablet Cholecalcif 2021-0 Yes [id number] 5000U Take 1 [facility] [place], 5-05 tablet by ity of Vitamin D3, 00:00: mouth [place] (VITAMIN 00 daily. Medical D3) 125 mcg Branch (5,000 unit) tablet Cholecalcif 2021-0 Yes [id number] 5000U Take 1 [facility] [place], 5-05 tablet by ity of Vitamin D3, 00:00: mouth [place] (VITAMIN 00 daily. Medical D3) 125 mcg Branch (5,000 unit) tablet Cholecalcif 2021-0 Yes [id number] 5000U Take 1 [facility] [place], 5-05 tablet by ity of Vitamin D3, 00:00: mouth [place] (VITAMIN 00 daily. Medical D3) 125 mcg Branch (5,000 unit) tablet Cholecalcif 2021-0 Yes [id number] 5000U Take 1 [facility] [place], 5-05 tablet by ity of Vitamin D3, 00:00: mouth [place] (VITAMIN 00 daily. Medical D3) 125 mcg Branch (5,000 unit) tablet Cholecalcif 2021-0 Yes [id number] 5000U Take 1 [facility] [place], 5-05 tablet by ity of Vitamin D3, 00:00: mouth [place] (VITAMIN 00 daily. Medical D3) 125 mcg Branch (5,000 unit) tablet Cholecalcif 2021-0 Yes [id number] 5000U Take 1 [facility] [place], 5-05 tablet by ity of Vitamin D3, 00:00: mouth [place] (VITAMIN 00 daily. Medical D3) 125 mcg Branch (5,000 unit) tablet Cholecalcif 2021-0 Yes [id number] 5000U Take 1 [facility] [place], 5-05 tablet by ity of Vitamin D3, 00:00: mouth [place] (VITAMIN 00 daily. Medical D3) 125 mcg Branch (5,000 unit) tablet Cholecalcif 2021-0 Yes [id number] 5000U Take 1 [facility] [place], 5-05 tablet by ity of Vitamin D3, 00:00: mouth [place] (VITAMIN 00 daily. Medical D3) 125 mcg Branch (5,000 unit) tablet Cholecalcif 2021-0 Yes [id number] 5000U Take 1 [facility] [place], 5-05 tablet by ity of Vitamin D3, 00:00: mouth [place] (VITAMIN 00 daily. Medical D3) 125 mcg Branch (5,000 unit) tablet Cholecalcif 2021-0 Yes [id number] 5000U Take 1 [facility] [place], 5-05 tablet by ity of Vitamin D3, 00:00: mouth [place] (VITAMIN 00 daily. Medical D3) 125 mcg Branch (5,000 unit) tablet Lactobacill 2018-11 Yes [id number] 1{tbl} Take 1 [facility] us Acidoph 2-23 tablet by ity of & [place] 1 00:00: mouth 2 [place] 00 (two) Medical cell Tab times Branch daily. acetaminoph 2018-11 Yes [id number] 500mg Take 1 [facility] en 500 mg 2-23 tablet by ity o f tablet 00:00: mouth [place] 00 every 8 Medical (eight) Branch hours. Lactobacill 2018-11 Yes [id number] 1{tbl} Take 1 [facility] us Acidoph 2-23 tablet by ity of & [place] 1 00:00: mouth 2 [place] 00 (two) Medical cell Tab times Branch daily. acetaminoph 2018-11 Yes [id number] 500mg Take 1 [facility] en 500 mg 2-23 tablet by ity o f tablet 00:00: mouth [place] 00 every 8 Medical (eight) Branch hours. Lactobacill 2018-11 Yes [id number] 1{tbl} Take 1 [facility] us Acidoph 2-23 tablet by ity of & [place] 1 00:00: mouth 2 [place] 00 (two) Medical cell Tab times Branch daily. acetaminoph 2018-11 Yes [id number] 500mg Take 1 [facility] en 500 mg 2-23 tablet by ity o f tablet 00:00: mouth [place] 00 every 8 Medical (eight) Branch hours. Lactobacill 2018-11 Yes [id number] 1{tbl} Take 1 [facility] us Acidoph 2-23 tablet by ity of & [place] 1 00:00: mouth 2 [place] 00 (two) Medical cell Tab times Branch daily. acetaminoph 2018-11 Yes [id number] 500mg Take 1 [facility] en 500 mg 2-23 tablet by ity o f tablet 00:00: mouth [place] 00 every 8 Medical (eight) Branch hours. Lactobacill 2018-11 Yes [id number] 1{tbl} Take 1 [facility] us Acidoph 2-23 tablet by ity of & [place] 1 00:00: mouth 2 [place] 00 (two) Medical cell Tab times Branch daily. acetaminoph 2018-11 Yes [id number] 500mg Take 1 [facility] en 500 mg 2-23 tablet by ity o f tablet 00:00: mouth [place] 00 every 8 Medical (eight) Branch hours. Lactobacill 2018-11 Yes [id number] 1{tbl} Take 1 [facility] us Acidoph 2-23 tablet by ity of & [place] 1 00:00: mouth 2 [place] 00 (two) Medical cell Tab times Branch daily. acetaminoph 2018-11 Yes [id number] 500mg Take 1 [facility] en 500 mg 2-23 tablet by ity o f tablet 00:00: mouth [place] 00 every 8 Medical (eight) Branch hours. Lactobacill 2018-11 Yes [id number] 1{tbl} Take 1 [facility] us Acidoph 2-23 tablet by ity of & [place] 1 00:00: mouth 2 [place] 00 (two) Medical cell Tab times Branch daily. acetaminoph 2018-11 Yes [id number] 500mg Take 1 [facility] en 500 mg 2-23 tablet by ity o f tablet 00:00: mouth [place] 00 every 8 Medical (eight) Branch hours. Lactobacill 2018-11 Yes [id number] 1{tbl} Take 1 [facility] us Acidoph 2-23 tablet by ity of & [place] 1 00:00: mouth 2 [place] 00 (two) Medical cell Tab times Branch daily. acetaminoph 2018-11 Yes [id number] 500mg Take 1 [facility] en 500 mg 2-23 tablet by ity o f tablet 00:00: mouth [place] 00 every 8 Medical (eight) Branch hours. Lactobacill 2018-11 Yes [id number] 1{tbl} Take 1 [facility] us Acidoph 2-23 tablet by ity of & [place] 1 00:00: mouth 2 [place] 00 (two) Medical cell Tab times Branch daily. acetaminoph 2018-11 Yes [id number] 500mg Take 1 [facility] en 500 mg 2-23 tablet by ity o f tablet 00:00: mouth [place] 00 every 8 Medical (eight) Branch hours. Lactobacill 2018-11 Yes [id number] 1{tbl} Take 1 [facility] us Acidoph 2-23 tablet by ity of & [place] 1 00:00: mouth 2 [place] 00 (two) Medical cell Tab times Branch daily. acetaminoph 2018-11 Yes [id number] 500mg Take 1 [facility] en 500 mg 2-23 tablet by ity o f tablet 00:00: mouth [place] 00 every 8 Medical (eight) Branch hours. Lactobacill 2018-11 Yes [id number] 1{tbl} Take 1 [facility] us Acidoph 2-23 tablet by ity of & [place] 1 00:00: mouth 2 [place] 00 (two) Medical cell Tab times Branch daily. acetaminoph 2018-11 Yes [id number] 500mg Take 1 [facility] en 500 mg 2-23 tablet by ity o f tablet 00:00: mouth [place] 00 every 8 Medical (eight) Branch hours. Lactobacill 2018-11 Yes [id number] 1{tbl} Take 1 [facility] us Acidoph 2-23 tablet by ity of & [place] 1 00:00: mouth 2 [place] 00 (two) Medical cell Tab times Branch daily. acetaminoph 2018-11 Yes [id number] 500mg Take 1 [facility] en 500 mg 2-23 tablet by ity o f tablet 00:00: mouth [place] 00 every 8 Medical (eight) Branch hours. Lactobacill 2018-11 Yes [id number] 1{tbl} Take 1 [facility] us Acidoph 2-23 tablet by ity of & [place] 1 00:00: mouth 2 [place] 00 (two) Medical cell Tab times Branch daily. acetaminoph 2018-11 Yes [id number] 500mg Take 1 [facility] en 500 mg 2-23 tablet by ity o f tablet 00:00: mouth [place] 00 every 8 Medical (eight) Branch hours. Lactobacill 2018-11 Yes [id number] 1{tbl} Take 1 [facility] us Acidoph 2-23 tablet by ity of & [place] 1 00:00: mouth 2 [place] 00 (two) Medical cell Tab times Branch daily. acetaminoph 2018-11 Yes [id number] 500mg Take 1 [facility] en 500 mg 2-23 tablet by ity o f tablet 00:00: mouth [place] 00 every 8 Medical (eight) Branch hours. Lactobacill 2018-11 Yes [id number] 1{tbl} Take 1 [facility] us Acidoph 2-23 tablet by ity of & [place] 1 00:00: mouth 2 [place] 00 (two) Medical cell Tab times Branch daily. acetaminoph 2018-11 Yes [id number] 500mg Take 1 [facility] en 500 mg 2-23 tablet by ity o f tablet 00:00: mouth [place] 00 every 8 Medical (eight) Branch hours. Lactobacill 2018-11 Yes [id number] 1{tbl} Take 1 [facility] us Acidoph 2-23 tablet by ity of & [place] 1 00:00: mouth 2 [place] 00 (two) Medical cell Tab times Branch daily. acetaminoph 2018-11 Yes [id number] 500mg Take 1 [facility] en 500 mg 2-23 tablet by ity o f tablet 00:00: mouth [place] 00 every 8 Medical (eight) Branch hours. Lactobacill 2018-11 Yes [id number] 1{tbl} Take 1 [facility] us Acidoph 2-23 tablet by ity of & [place] 1 00:00: mouth 2 [place] 00 (two) Medical cell Tab times Branch daily. acetaminoph 2018-11 Yes [id number] 500mg Take 1 [facility] en 500 mg 2-23 tablet by ity o f tablet 00:00: mouth [place] 00 every 8 Medical (eight) Branch hours. Lactobacill 2018-11 Yes [id number] 1{tbl} Take 1 [facility] us Acidoph 2-23 tablet by ity of & [place] 1 00:00: mouth 2 [place] 00 (two) Medical cell Tab times Branch daily. acetaminoph 2018-11 Yes [id number] 500mg Take 1 [facility] en 500 mg 2-23 tablet by ity o f tablet 00:00: mouth [place] 00 every 8 Medical (eight) Branch hours. Lactobacill 2018-11 Yes [id number] 1{tbl} Take 1 [facility] us Acidoph 2-23 tablet by ity of & [place] 1 00:00: mouth 2 [place] 00 (two) Medical cell Tab times Branch daily. acetaminoph 2018-11 Yes [id number] 500mg Take 1 [facility] en 500 mg 2-23 tablet by ity o f tablet 00:00: mouth [place] 00 every 8 Medical (eight) Branch hours. Lactobacill 2018-11 Yes [id number] 1{tbl} Take 1 [facility] us Acidoph 2-23 tablet by ity of & [place] 1 00:00: mouth 2 [place] 00 (two) Medical cell Tab times Branch daily. acetaminoph 2018-11 Yes [id number] 500mg Take 1 [facility] en 500 mg 2-23 tablet by ity o f tablet 00:00: mouth [place] 00 every 8 Medical (eight) Branch hours. Lactobacill 2018-11 Yes [id number] 1{tbl} Take 1 [facility] us Acidoph 2-23 tablet by ity of & [place] 1 00:00: mouth 2 [place] 00 (two) Medical cell Tab times Branch daily. acetaminoph 2018-11 Yes [id number] 500mg Take 1 [facility] en 500 mg 2-23 tablet by ity o f tablet 00:00: mouth [place] 00 every 8 Medical (eight) Branch hours. Lactobacill 2018-11 Yes [id number] 1{tbl} Take 1 [facility] us Acidoph 2-23 tablet by ity of & [place] 1 00:00: mouth 2 [place] 00 (two) Medical cell Tab times Branch daily. acetaminoph 2018-11 Yes [id number] 500mg Take 1 [facility] en 500 mg 2-23 tablet by ity o f tablet 00:00: mouth [place] 00 every 8 Medical (eight) Branch hours. Lactobacill 2018-11 Yes [id number] 1{tbl} Take 1 [facility] us Acidoph 2-23 tablet by ity of & [place] 1 00:00: mouth 2 [place] 00 (two) Medical cell Tab times Branch daily. acetaminoph 2018-11 Yes [id number] 500mg Take 1 [facility] en 500 mg 2-23 tablet by ity o f tablet 00:00: mouth [place] 00 every 8 Medical (eight) Branch hours. Lactobacill 2018-11 Yes [id number] 1{tbl} Take 1 [facility] us Acidoph 2-23 tablet by ity of & [place] 1 00:00: mouth 2 [place] 00 (two) Medical cell Tab times Branch daily. acetaminoph 2018-11 Yes [id number] 500mg Take 1 [facility] en 500 mg 2-23 tablet by ity o f tablet 00:00: mouth [place] 00 every 8 Medical (eight) Branch hours. Lactobacill 2018-11 Yes [id number] 1{tbl} Take 1 [facility] us Acidoph 2-23 tablet by ity of & [place] 1 00:00: mouth 2 [place] 00 (two) Medical cell Tab times Branch daily. acetaminoph 2018-11 Yes [id number] 500mg Take 1 [facility] en 500 mg 2-23 tablet by ity o f tablet 00:00: mouth [place] 00 every 8 Medical (eight) Branch hours. Lactobacill 2018-11 Yes [id number] 1{tbl} Take 1 [facility] us Acidoph 2-23 tablet by ity of & [place] 1 00:00: mouth 2 [place] 00 (two) Medical cell Tab times Branch daily. acetaminoph 2018-11 Yes [id number] 500mg Take 1 [facility] en 500 mg 2-23 tablet by ity o f tablet 00:00: mouth [place] 00 every 8 Medical (eight) Branch hours. Lactobacill 2018-11 Yes [id number] 1{tbl} Take 1 [facility] us Acidoph 2-23 tablet by ity of & [place] 1 00:00: mouth 2 [place] 00 (two) Medical cell Tab times Branch daily. acetaminoph 2018-11 Yes [id number] 500mg Take 1 [facility] en 500 mg 2-23 tablet by ity o f tablet 00:00: mouth [place] 00 every 8 Medical (eight) Branch hours. Lactobacill 2018-11 Yes [id number] 1{tbl} Take 1 [facility] Acidoph 2-23 tablet by ity of & [place] 1 00:00[place] mouth [place] (two) Medical cell Tab times Branch daily. acetaminoph 2018-11 Yes [id number] 500mg Take 1 Univers en 500 mg 2-23 tablet by ity o f tablet 00:00: mouth [place] 00 every 8 Medical (eight) Branch hours. Immunizations Ordered Filled Immunization Date Status Comments [facility] Immunization Name Name Td 2022-05-06 [facility] 00:00:00 [facility] Td 2022-05-06 Completed University of 00:00:00 [facility] Td 2022-05-06 Completed University of 00:00:00 [facility] Td 2022-05-06 Completed University of 00:00:00 [facility] Td 2022-05-06 Completed University of 00:00:00 [facility] Td 2022-05-06 Completed University of 00:00:00 [facility] Td 2022-05-06 Completed University of 00:00:00 [facility] Td 2022-05-06 Completed University of 00:00:00 [facility] Td 2022-05-06 Completed University of 00:00:00 [facility] Td 2022-05-06 Completed University of 00:00:00 [facility] Td 2022-05-06 Completed University of 00:00:00 [facility] Td 2022-05-06 Completed University of 00:00:00 [facility] Td 2022-05-06 Completed University of 00:00:00 [facility] Td 2022-05-06 Completed University of 00:00:00 [facility] Td 2022-05-06 Completed University of 00:00:00 [facility] Td 2022-05-06 Completed University of 00:00:00 [facility] Td 2022-05-06 Completed University of 00:00:00 [facility] Td 2022-05-06 Completed University of 00:00:00 [facility] Td 2022-05-06 Completed University of 00:00:00 [facility] Td 2022-05-06 Completed University of 00:00:00 [facility] Td 2022-05-06 Completed University of 00:00:00 [facility] Td 2022-05-06 Completed University of 00:00:00 [facility] Td 2022-05-06 Completed University of 00:00:00 [facility] Td 2022-05-06 Completed University of 00:00:00 [facility] Td 2022-05-06 Completed University of 00:00:00 [facility] Td 2022-05-06 Completed University of 00:00:00 [facility] Td 2022-05-06 Completed University of 00:00:00 [facility] Td 2022-05-06 Completed University of 00:00:00 [facility] Vital Signs Vital Name Observation Time Observation Value Comments Source Systolic blood 2022-10-19 17:21:00 140 mm[Hg] Univer sity of pressure [facility] Diastolic blood 2022-10-19 17:21:00 61 mm[Hg] Unive rsity of pressure [facility] Heart rate 2022-10-19 17:21:00 91 /min Universi ty of [facility] Body temperature 2022-10-19 17:21:00 36.22 Brinti Univ ersity of [facility] Respiratory rate 2022-10-19 17:21:00 16 /min Univ ersity of [place] [facility] Oxygen saturation in 2022-10-19 17:21:00 95 /min University of Arterial blood by [facility] joanne Pulse oximetry Branch Body weight 2022-10-19 10:14:00 67.631 kg Universi ty of [facility] BMI 2022-10-19 10:14:00 27.27 kg/m2 Universi ty [facility] Body height 2022-10-18 23:29:00 157.5 cm Universi ty of [facility] Systolic blood 2022-09-18 20:46:00 133 mm[Hg] Univer sity of pressure [facility] Diastolic blood 2022-09-18 20:46:00 63 mm[Hg] Unive rsity of pressure [facility] Heart rate 2022-09-18 20:46:00 95 /min Universi ty of [facility] Respiratory rate 2022-09-18 20:46:00 16 /min Univ ersity of [facility] Oxygen saturation in 2022-09-18 20:46:00 96 /min University of Arterial blood by [facility] Pulse oximetry Branch Body temperature 2022-09-18 20:45:00 36.44 Britni Univ ersity of [facility] Body height 2022-09-18 20:45:00 157.5 cm Universi ty of [facility] Body weight 2022-09-18 20:45:00 66.769 kg Universi ty of [facility] BMI 2022-09-18 20:45:00 26.92 kg/m2 Universi ty of [facility] Systolic blood 2022-09-18 15:31:00 158 mm[Hg] Univer sity of pressure [facility] Diastolic blood 2022-09-18 15:31:00 81 mm[Hg] Unive rsity of pressure [place] [facility] Heart rate 2022-09-18 15:31:00 88 /min [facility]i ty [facility] [place] [facility] Body temperature 2022-09-18 15:31:00 36.56 Britni Univ ersity [facility] [place] [facility] Respiratory rate 2022-09-18 15:31:00 18 /min Univ ersity of [place] [facility] Body weight 2022-09-18 15:31:00 67.132 kg [facility]i [facility] [place] [facility] BMI 2022-09-18 15:31:00 27.07 kg/m2 [facility] [place] [facility] Oxygen saturation in 2022-09-18 15:31:00 97 /min University of Arterial blood by [employer] Pulse oximetry Branch Systolic blood 2022-08-16 18:37:00 168 mm[Hg] Univer sity of pressure [facility] Diastolic blood 2022-08-16 18:37:00 79 mm[Hg] Unive rsity of pressure [facility] Heart rate 2022-08-16 18:37:00 86 /min Universi ty [facility] [place] [facility] Body temperature 2022-08-16 18:37:00 36.67 Britni Univ ersity of [facility] Respiratory rate 2022-08-16 18:37:00 16 /min Univ ersity of [facility] Body height 2022-08-16 18:37:00 157.5 cm Universi ty [facility] [place] [facility] Body weight 2022-08-16 18:37:00 66.679 kg [facility]i [facility] [place] [facility] BMI 2022-08-16 18:37:00 26.89 kg/m2 [facility] [place] [facility] Oxygen saturation in 2022-08-16 18:37:00 100 /min University of Arterial blood by [employer] Pulse oximetry Branch Systolic blood 2022-08-02 16:00:00 156 mm[Hg] Univer sity of pressure [facility] Diastolic blood 2022-08-02 16:00:00 71 mm[Hg] Unive rsity of pressure [place] [facility] Heart rate 2022-08-02 16:00:00 92 /min [facility]i [facility] [place] [facility] Respiratory rate 2022-08-02 16:00:00 13 /min Univ ersity of [facility] Oxygen saturation in 2022-08-02 16:00:00 99 /min University of Arterial blood by [facility] Pulse oximetry Branch Body temperature 2022-08-02 13:15:00 36.61 Britni Univ ersity of [facility] Branch Body height 2022-08-02 13:15:00 152.4 cm Universi ty of [facility] Body weight 2022-08-02 13:15:00 56.7 kg Universi ty of [facility] BMI 2022-08-02 13:15:00 24.41 kg/m2 Universi ty [facility] Systolic blood 2022-07-17 20:24:00 135 mm[Hg] Univer sity of pressure [facility] Diastolic blood 2022-07-17 20:24:00 70 mm[Hg] Unive rsity of pressure [facility] Heart rate 2022-07-17 20:24:00 99 /min Universi ty [facility] Body temperature 2022-07-17 20:24:00 36.94 Britni Univ ersity of [facility] Respiratory rate 2022-07-17 20:24:00 16 /min Univ ersity of [facility] Body weight 2022-07-17 20:24:00 63.504 kg Universi ty of [facility] BMI 2022-07-17 20:24:00 27.34 kg/m2 Universi ty [facility] Oxygen saturation in 2022-07-17 20:24:00 100 /min University of Arterial blood by [facility] Pulse oximetry Branch Body height 2022-07-17 13:39:00 152.4 cm Universi ty of [facility] Systolic blood 2022-07-17 17:00:00 153 mm[Hg] Univer sity of pressure [facility] Diastolic blood 2022-07-17 17:00:00 73 mm[Hg] Unive rsity of pressure [facility] Heart rate 2022-07-17 17:00:00 87 /min Universi ty [facility] Oxygen saturation in 2022-07-17 17:00:00 100 /min University of Arterial blood by [facility] Pulse oximetry Branch Body temperature 2022-07-17 16:45:00 36.33 Britni Univ ersity of [facility] Respiratory rate 2022-07-17 16:30:00 16 /min Univ ersity of [facility] Body height 2022-07-17 13:39:00 152.4 cm [facility] Body weight 2022-07-17 13:39:00 64.8 kg [facility] BMI 2022-07-17 13:39:00 27.34 kg/m2 [facility] Systolic blood 2022-07-05 15:21:00 84 mm[Hg] Univer sity of pressure [facility] Diastolic blood 2022-07-05 15:21:00 49 mm[Hg] Unive rsity of [facility] Heart rate 2022-07-05 15:21:00 85 /min [facility] Body temperature 2022-07-05 15:21:00 36.89 Britni [facility] Res[facility] 2022-07-05 15:21:00 16 /min [facility] Body height 2022-07-05 15:21:00 152.4 cm [facility] Body weight 2022-07-05 15:21:00 64.501 kg [facility] BMI 2022-07-05 15:21:00 27.77 kg/m2 [facility] Oxygen saturation in 2022-07-05 15:21:00 97 /min [facility] Arterial blood by [facility] Pulse oximetry Branch Procedures Procedure Date / Time Performing Clinician Source Performed COVID-19 (ID NOW RAPID 2022-10-19 18:15:00 Graciela Davis [facility] TESTING) [facility] Branch CREATINE KINASE 2022-10-19 11:02:00 Graciela Davis [facility] MAGNESIUM 2022-10-19 11:02:00 Dave Mo [facility] FERRITIN SERUM 2022-10-19 11:02:00 Chely [facility] IRON 2022-10-19 11:02:00 Chely [facility] VITAMIN B12, LEVEL 2022-10-19 11:02:00 Dave Mo [facility] FOLATE 2022-10-19 11:02:00 Chely [facility] TOTAL IRON BINDING 2022-10-19 11:02:00 Chely Dave [facility] COMP. METABOLIC PANEL 2022-10-19 11:02:00 Chely Dave [facility] ([id number]) Medical Branch CBC WITH DIFF 2022-10-19 11:02:00 Graciela Davis [facility] CREATINE KINASE 2022-10-18 20:21:00 Jeffery Odom [facility] CT TRAUMA HEAD WO CONTRAST 2022-10-18 15:44:57 [facility] THORAX W 2022-10-18 15:44:57 Jeffery Odom [facility] CONTRAST [facility] CT TRAUMA CERVICAL SPINE 2022-10-18 15:44:57 Jeffery Odom [facility] CONTRAST [facility] CT TRAUMA THORACIC SPINE 2022-10-18 15:44:57 Jeffery Odom [facility] CONTRAST [facility] CT TRAUMA ABDOMEN PELVIS W 2022-10-18 15:44:57 Jeffery Odom U [facility] CT TRAUMA LUMBAR SPINE WO 2022-10-18 15:44:57 [facility] PHOS[facility]US 2022-10-18 14:35:00 Jeffery Odom [facility] CK (CREATINE KINASE) + MB 2022-10-18 14:35:00 [facility] MAGNESIUM 2022-10-18 14:35:00 Jeffery Odom [facility] TROPONIN I 2022-10-18 14:35:00 Jeffery Odom [facility] COMP. METABOLIC PANEL 2022-10-18 14:35:00 Jeffery Odom [facility] ([id number]) Medical Branch ETHANOL 2022-10-18 14:35:00 Jeffery Odom [facility] URINE DRUG (IMMUNOASSAY) - 2022-10-18 14:35:00 Jeffery Odom [facility] COMPREHENSIVE DRUG SCREEN Medica l Branch CBC WITH DIFF 2022-10-18 14:35:00 Jeffery Odom [facility] GLYCOSYLATED HEMOGLOBIN 2022-10-18 14:35:00 Graciela Davis [facility] (A1C) [facility] Branch URINALYSIS 2022-10-18 14:35:00 Jeffery Odom [facility] EKG-12 LEAD 2022-10-18 14:19:32 Jeffery Odom [facility] HOME HEALTH - OTHER 2022-10-15 06:01:00 Doctor [facility] [place] HOME HEALTH - OTHER 2022-10-03 06:01:00 Doctor Jaci [facility] Name Medical [place] CARCINOEMBRYONIC ANTIGEN 2022-09-18 21:49:00 Sadi Villegas [facility] CBC WITH DIFF 2022-09-18 21:49:00 Sadi Villegas [facility] CT ABDOMEN PELVIS W 2022-08-02 14:39:23 Jo Ann Schmitz [facility] CONTRAST [facility] COMP. METABOLIC PANEL 2022-08-02 13:36:00 Jo Ann Schmitz [facility] ([id number]) [facility] CBC WITH DIFF 2022-08-02 13:36:00 Jo Ann Schmitz [facility] PROTHROMBIN TIME / INR 2022-08-02 13:36:00 Jo Ann Schmitz [facility] CONSENT/REFUSAL FOR 2022-08-02 13:06:48 Doctor Jaci [facility] DIAGNOSIS AND TREATMENT [facility] [place] FL TIME OR 2022-07-17 17:06:24 Vick aHrt [facility] (NON-REPORTABLE) Medical Branch FL TIME OR 2022-07-17 17:06:24 Vick Hart [facility] (NON-REPORTABLE) [facility] [place] ARTERIOGRAM 2022-07-17 14:25:00 Tanner [facility] ASSIGNMENT OF BENEFITS 2022-07-17 12:29:27 [facility] [place] Encounters Start End Encounter Admission Attending Care Care Encounter Source Date/Time Date/Time Type Type Clinicians Facility Department ID 2022-10-29 Outpatient R DEANNA [facility] [id number] Univers 15:08:55 YAMAM ity of [facility] 2022-07-05 Outpatient R VICK HART [facility] SV [id number] Univers 11:25:24 VICK HART i ty of [facility] 2021-09-08 Outpatient R NEREIDA [facility] MARINA [id number] Univers 09:39:43 JAMEEL Sharma ity of [facility] 2021-09-[address] [facility] [id number] Univers 05:31:49 ity of [facility] 2019-11-02 Inpatient 3 RJ Schmitz OST [id number] [employer]a 20:14:00 Patti [facility] [place] 2022-10-22 2022-10-22 Transition SANDRA Wyatt 1.2.840.114 [id number] Univers 00:00:00 00:00:00 of Care Katie COLIN 350.1.13.10 i ty of [place] 4.2.7.2.686 [facility] [id number] [facility] 403 Branch 2022-10-18 2022-10-19 Outpatient X PATRICIA [facility] JOSE [id number] Univers 08:11:00 17:09:00 [facility] 2022-10-18 2022-10-19 Emergency Jeffery Odom [facility] 1.2.840.1 [id number] Univers 08:11:00 17:09:00 Irlanda Sky 350.1.13.10 ity [facility] 4.2.7.2.686 [place] [facility] [id number] [facility] 081 Branch 2022-10-18 2022-10-[address] [facility] [id number] Univers 11:20:00 11:20:00 [facility] 2022-10-16 2022-10-16 Telephone Erwin, [facility] 1.2.840.114 [id number] Univers 00:00:00 00:00:00 1st Floor SPECIALTY 350.1.13.10 ity of [facility] [place].7.2.686 [place] [id number] [facility] 387 Branch 2022-10-16 2022-10-16 [facility] 1.2.840.114 [id number] Univers 00:00:00 00:00:00 Enrico SPECIALTY 350.1.13.10 ity of [place] 4.2.7.2.686 [place] [id number] [facility] 387 [place] 2022-10-09 2022-10-09 Telephone Deanna [facility] 1.2.840.114 [id number] Univers 00:00:00 00:00:00 Yam HEALTH 350.1.13.10 it y of [place].2.686 [place] - [id number] [facility] 072 Branch 2022-10-07 2022-10-07 Case JACQUELIN Villegas 1.2.710.272 [id number] Univers 00:00:00 00:00:00 Management Sadi CRAWFORD 350.1.13.10 ity of HOSPITAL 4.2.7.2.686 Brayan as [id number] [facility] 046 Branch 2022-10-03 2022-10-03 Orders Doctor JACQUELIN 1.2.840.114 [id number] Univers 00:00:00 00:00:00 Only Unassigned, TY 350.1.13.10 ity of [facility] 4.2.7.2.686 Brayan as [id number] [facility] 009 Branch 2022-09-27 2022-09-27 Telephone [facility] 1.2.840.114 [id number] Univers 00:00:00 00:00:00 Enrico SPECIALTY 350.1.13.10 ity of [place] 4.[place].2.[place] [id number] [facility] 387 [place] 2022-09-26 2022-09-26 [facility] 1.2.840.114 [id number] Univers 00:00:00 00:00:00 Enrico SPECIALTY 350.1.13.10 ity of [place] 4.2.[place].2.686 [place] [id number] [facility] 387 [place] 2022-09-18 2022-09-18 Office Deanna [facility] 1.2.665.800 [id number] Univers 14:30:00 15:00:00 Visit [facility] 350.1.13.10 it y of [place].2.[place] C[place] - [id number] [facility] Branch 2022-09-18 2022-09-18 Office [facility] 1.2.840.114 [id number] Univers 09:30:00 10:00:00 Visit [place] SPECIALTY 350.1.13.10 [place]y of [place].2.[place] [id number] [facility] 387 [place] 2022-09-18 2022-09-18 Outpatient R [facility] [id number] Univers 09:30:00 09:30:00 ENRICO ity of [facility] 2022-09-18 2022-09-18 [facility] 1.2.840.114 [id number] Univers 00:00:00 00:00:00 Enrico SPECIALTY 350.1.13.10 [place].2.[place] [id number] [facility] 387 [place] 2022-09-17 2022-09-17 [facility] 1.2.840.114 [id number] Univers 00:00:00 00:00:00 [place] SPECIALTY 350.1.13.10 [place] 4[place].2.[place] [id number] [address] 2022-09-12 2022-09-12 [facility] 1.2.215.862 [id number] Univers 00:00:00 00:00:00 Magaly SPECIALTY 350.1.13.10 ity of [place] CARE 4.2.7.2.686 [place] CENTER AT [id number] Ms dical [facility] 072 Branch [facility] 2022-08-21 2022-08-21 Leon [facility] 1.2.840.114 [id number] Univers 00:00:00 00:00:00 Mary EMERY 350.1.13.10 ity of [place] 4.2.7.2.686 [place] [id number] Ms dical NAL 044 Branch [facility] 2022-08-16 2022-08-16 [facility] 1.2.840.114 [id number] Univers 14:15:00 14:15:00 Visit Vick [facility] 350.1.13.10 i ty of [place].2.686 [place] [id number] [facility] 205 Branch OFFICE BUILDING 2022-08-16 2022-08-[address] [facility] 1 [id number] Univers 14:15:00 14:12:43 VICK HART [facility] 2022-08-02 2022-08-02 Emergency X [facility] ERT [id number] Univers 08:16:00 11:59:00 JO ANN [facility] 2022-08-02 2022-08-02 Emergency [facility] 1.2.840.114 [id number] Univers 08:16:00 11:59:00 Jo Ann EMERY 350.1.13.10 ity of [place] 4.2.7.2.[place] [id number] [facility] 084 Branch 2022-08-02 2022-08-02 Orders Doctor JACQUELIN 1.2.840.114 [id number] Univers 00:00:00 00:00:00 Only Unassigned, TY 350.1.13.10 ity of [facility] 4.2.7.2.686 Brayan as [id number] [facility] 009 Branch 2022-07-17 2022-07-17 Hospital [facility] 1.2.840.114 [id number] Univers 07:29:00 17:51:00 Encounter [facility] 350.1.13.10 ity [place].2.[place] [id number] [facility] 113 Branch (CLC) 2022-07-17 2022-07-17 Outpatient R VICK HART [facility] MARINA 1 [id number] Univers 07:29:00 17:51:00 VICK HART [facility] 2022-07-17 2022-07-17 Surgery Tanner [facility] 1.2.840.114 [id number] Univers 09:24:00 12:03:00 Vick [facility] 350.1.13.10 i ty of [place] 4[place].2.686 [place] [id number] [facility] 020 Branch (CLC) 2022-07-17 2022-07-17 Orders Doctor JACQUELIN 1.2.840.114 [id number] Univers 00:00:00 00:00:00 Only Unassigned, TY 350.1.13.10 ity of [facility] 4.2.7.2.686 Brayan as [id number] [facility] 009 Branch 2022-07-13 2022-07-13 Laboratory Only, Adc Test [facility] 1.2.840. 114 [id number] Univers 16:00:00 16:15:00 Only Vick Hart 350.1.13.10 ity of [facility] 4.2.7.2.686 [facility] [id number] [facility] 353 Branch 2022-07-13 2022-07-[address] [facility] 1 [id number] Univers 16:00:00 16:00:00 VICK HART [facility] 2022-07-05 2022-07-05 Office Tanner [facility] 1.2.840.114 [id number] Univers 10:00:00 10:15:00 [facility] 350.1.13.10 i ty [place]2.686 [place] [id number] [place] [address] Branch OFFICE BUILDING 2022-07-05 2022-07-[address] [facility] 1 [id number] Univers 10:00:00 10:00:00 VICK HART [facility] 2022-06-21 2022-06-[address] [facility] [id number] Univers 09:04:29 23:59:00 MELVI rice [facility] 2022-06-21 2022-06-21 [facility] 1.2.840.114 [id number] Univers 08:45:00 23:59:00 Encounter Melvi EMERY 350.1.13.10 ity of [facility] 4.2.7.2.686 [facility] [id number] [facility] 801 Branch 2022-06-21 2022-06-[address] [facility] [id number] Univers 00:00:00 00:00:00 MELVI ity [facility] 2022-06-15 2022-06-15 Office [facility] 1.2.840.114 [id number] Univers 14:00:00 14:30:00 Visit Enrico SPECIALTY 350.1.13.10 ity of [place] 4.2.[place].2.[place] [id number] [address] 2022-06-15 2022-06-15 Outpatient R [facility] [id number] Univers 14:00:00 14:00:00 ENRICO ity [facility] 2022-06-14 2022-06-14 Outpatient R BASSAM, [facility] [id number] Univers 13:19:50 23:59:00 VIVIEN hinojosajeffery o [facility] 2022-06-14 2022-06-14 Outpatient R BASSAM, [facility] [id number] Univers 13:19:50 23:59:00 VIVIEN krystal o [facility] 2022-06-14 2022-06-14 Telephone [facility] 12.840.114 [id number] Univers 00:00:00 00:00:00 [place] SPECIALTY 350.1.13.10 [place].2.[place] [id number] [address] 2022-06-08 2022-06-08 Office [facility] 1.2.840.114 [id number] Univers 13:30:00 14:00:00 Visit [place] SPECIALTY 350.1.13.10 ity of [place] 4.2.7.2.[place] [id number] [address] 2022-06-08 2022-06-08 [facility] [id number] Univers 13:30:00 13:30:00 ENRICO hinojosay [facility] 2022-06-08 2022-06-08 [facility] [id number] Univers 13:30:00 13:30:00 ENRICO rice [facility] 2022-06-08 2022-06-08 Outpatient [facility] [id number] Univers 13:30:00 13:30:00 ENRICO ity [facility] 2022-06-07 2022-06-07 Outpatient R TANNER VICK [facility] 1 [id number] Univers 09:45:00 10:52:01 VICK HART [facility] 2022-06-07 2022-06-07 Office [facility] 1.2.840.114 [id number] Univers 09:45:00 10:52:01 [facility] 350.1.13.10 i ty of [place]2.[place].2.[place] [id number] [address] OFFICE BUILDING 2022 2022 Orders Doctor JACQUELIN 1.2.840.114 [id number] Univers 00:00:00 00:00:00 Only Unassigned, TY 350.1.13.10 ity of [place] [facility] 4.2.7.2.686 Brayan [place] [phone] [place] [address] 2022-06-04 2022-06-04 [facility] 1.2.840.114 [id number] Univers 00:00:00 00:00:00 Enrico SPECIALTY 350.1.13.10 [place] of [place] [id number] [address] 2022-06-04 2022-06-04 [facility] 1.2.840.114 [id number] Univers 00:00:00 00:00:00 Enrico SPECIALTY 350.1.13.10 it[place] of [place] [phone] [address] 2022-06-01 2022-06-01 [facility] 1.2.840.114 [id number] Univers 00:00:00 00:00:00 Enrico SPECIALTY 350.1.13.10 it[place] of [place] [phone] [address] 2022-06-01 2022-06-01 [facility] 1.2.840.114 [id number] Univers 00:00:00 00:00:00 Enrico SPECIALTY 350.1.13.10 it[place] of [place] [id number] [facility] [address] 2022-05-25 2022-05-25 Office [facility] 1.2.840.114 [id number] Univers 14:30:00 15:00:00 Visit Enrico RODRIGUEZ 350.1.13.10 ity of [place] [id number] [facility] [address] 2022-05-25 2022-05-25 Outpatient R [facility] [id number] Univers 14:30:00 14:30:00 [facility] 2022-05-25 2022-05-25 Outpatient R [facility] [id number] Univers 14:30:00 14:30:00 [facility] 2022-05-25 2022-05-25 Orders Doctor JACQUELIN 1.2.840.114 [id number] Univers 00:00:00 00:00:00 Only Unassigned, TY 350.1.13.10 ity of [place] [facility] 4.2.7.2.686 Brayan as [phone] [facility] [address] 2022-05-16 2022-05-16 [facility] [id number] Univers 13:30:00 14:48:28 MAXI [facility] 2022-05-16 2022-05-16 [facility] 1.2.840.114 [id number] Univers 13:30:00 14:48:28 Visit [facility] 350.1.13.10 it y of [place] 4.2.7.2.686 Brayan as JUDITH?BLEA [phone] Ms joe [address] MEDICAL OFFICE BUILDING 2022-05-10 2022-05-10 Transition SANDRA Wyatt 1.2.840.114 [id number] Univers 00:00:00 00:00:00 of Care Katie COLIN 350.1.13.10 i ty of [place] [id number] [facility] [address] 2022-05-06 2022-05-09 Outpatient X JOSE DANIEL [facility] [id number] Univers 12:04:00 17:12:00 IRLANDA krystal [facility] 2022-05-06 2022-05-09 Emergency Oksana Holland [facility] 1.2.840 .114 [id number] Univers 12:04:00 17:12:00 Chely Daveshadia EMERY 350.1.13.10 ity of [place] 4.2.7.2.686 [facility] [id number] [facility] [address] 2022-05-06 2022-05-09 Outpatient X JOSE DANIEL [facility] [id number] Univers 12:04:00 17:12:00 IRLANDA jeffery [facility] 2022-05-09 2022-05-09 Telephone Maryjo [facility] 1.2.958.556 [id number] Univers 00:00:00 00:00:00 Maxi [employer] 350.1.13.10 it y of [place] 4.2.7.2.686 Brayan as JUDITH?BLEA [phone] Ms joe PAREKH [address] MEDICAL OFFICE BUILDING 2022-05-06 2022-05-06 Orders Doctor JACQUELIN 1.2.840.114 [id number] Univers 00:00:00 00:00:00 Only Unassigned, TY 350.1.13.10 ity of [place] [facility] 4.2.7.2.686 Brayan as [phone] [facility] [address] 2022-02-26 2022-02-26 Desktop Support Manager Lab, Ang - [facility] 1.2.840.1 [id number] Univers 15:15:00 15:53:50 Visit Maxi Sibley 350.1.13.10 ity of [place] 4.2.7.2.686 Brayan as JUDITH?BLEA [phone] Ms joe PAREKH [address] MEDICAL OFFICE BUILDING 2022-02-26 2022-02-[address] [facility] [id number] Univers 14:00:00 15:13:28 MAXI rice [facility] 2022-02-26 2022-02-26 Office Maryjo [facility] 1.2.840.114 [id number] Univers 14:00:00 15:13:28 Visit Maxi DAWKINS 350.1.13.10 it y of [place] 4.2.7.2.686 Brayan as JUDITH?BLEA [id number] Ms dical ATAEY [address] MEDICAL OFFICE BUILDING 2022-02-26 2022-02-[address] [facility] [id number] Univers 14:00:00 15:13:28 MAXI rice of [facility] 2022-02-26 2022-02-26 Orders Doctor JACQUELIN 1.2.840.114 [id number] Univers 00:00:00 00:00:00 Only Unassigned, TY 350.1.13.10 ity of [place] [facility] 4.2.7.2.686 Brayan as [phone] [address] 2021-10-18 2021-10-[address] [facility] [id number] Univers 14:20:00 15:51:12 ORIN micaelajeffery [facility] 2021-10-18 2021-10-18 Ancillary Deyanira Hill [facility] 1.2.840 .114 [id number] Univers 13:55:41 14:35:41 Visit Orin Rankin 350.1.13.10 ity of [place] [phone] Ms dicpenny NAL [address] [facility] 2021-10-18 2021-10-[address] [facility] [id number] Univers 14:20:00 14:20:00 ORIN rice [facility] 2021-10-11 2021-10-11 Ancillary Deyanira Hill [facility] 1.2.840 .114 [id number] Univers 13:32:47 14:12:47 Visit Orin Rankin 350.1.13.10 ity [place] [id number] Ms dicpenny NAL [address] [facility] 2021-10-04 2021-10-[address] [facility] [id number] Univers 13:40:00 14:29:34 ORINDANIEL rice [facility] 2021-10-04 2021-10-04 Ancillary Deyanira Hill [facility] 1.2.840 .114 [id number] Univers 13:33:55 14:13:55 Visit Rankin, Orin EMERY 350.1.13.10 ity of [place] [id number] Ms dical NAL [address] [facility] 2021-10-04 2021-10-[address] [facility] [id number] Univers 13:40:00 13:40:00 ORIN rice [facility] 2021-09-27 2021-09-27 Ancillary Sangeeta Chacon [facility] 1.2.84 0.114 [id number] Univers 12:59:54 13:39:54 Visit Orni Rankin 350.1.13.10 it[facility] [place]2.[place] [id number] Ms dictn NAL [address] [facility] 2021-09-19 2021-09-19 Ancillary Carie Sneed [facility] 1 .2.840.114 [id number] Univers 14:38:45 15:54:43 Visit Orin Rankin 350.1.13.10 ity [facility] [place].2.[place] [phone] [facility] [address] [facility] 2021-09-05 2021-09-05 [facility] 1.2.840.114 [id number] Univers 13:44:25 23:59:00 Encounter Lauren DAWKINS 350.1.13.10 ity of [place] [id number] [address] 2021-09-05 2021-09-[address] [facility] [id number] Univers 13:44:25 23:59:00 LAUREN stephens [facility] 2021-09-05 2021-09-05 Office [facility] 1.2.840.114 [id number] Univers 15:03:24 17:00:53 Visit Lauren DAWKINS 350.1.13.10 ity [place] [phone] [facility] [address] 2021-09-05 2021-09-05 Hospital [facility] 1.2.840.114 [id number] Univers 13:43:39 13:43:39 Encounter Lauren Ramon [facility] 350.1.13.10 it[place] [id number] [facility] [address] 2021-08-29 2021-08-29 [facility] [id number] Univers 00:00:00 00:00:00 LAUREN gallego [facility] 2021-08-01 2021-08-01 Outpatient [facility] [id number] Univers 15:30:00 15:30:00 LAUREN gallego [facility] 2021-07-03 2021-07-03 Office [facility] 1.2.840.114 [id number] Univers 11:01:30 11:16:30 Visit [facility] 350.1.13.10 [place] [id number] [address] 2021-07-03 2021-07-03 Outpatient [facility] [id number] Univers 10:30:00 10:30:00 LAUREN gallego [facility] 2021-07-03 2021-07-03 Out[facility] [id number] Univers 09:00:00 09:00:00 SARA rice [facility] 2021-07-03 2021-07-03 Orders Doctor ROPER 1.2.840.114 [id number] Univers 00:00:00 00:00:00 Only Unassigned, TY 350.1.13.10 ity of [place] [facility] 4.2.7.2.686 Brayan as [id number] [facility] [address] 2021-06-15 2021-06-15 Outpatient [facility] [id number] Univers 12:45:42 23:59:00 RADHAMONIQUE krystal julián [facility] 2021-06-15 2021-06-15 Outpatient [facility] [id number] Univers 00:00:00 00:00:00 VIVIEN stephens [facility] 2021-05-22 2021-05-22 Outpatient Jose Armando [facility] [id number] Univers 10:30:00 10:30:00 MARY stephens [facility] 2021-05-16 2021-05-16 Outpatient Jose Armando [facility] [id number] Univers 10:00:00 10:00:00 MARY stephens [facility] 2021-05-16 2021-05-[address] [facility] [id number] Univers 10:00:00 10:00:00 MARY stephens [facility] 2021-03-17 2021-03-[address] [facility] [id number] Univers 14:20:00 14:20:00 IRMA ANTONIO [facility] 2021-03-14 2021-03-14 Outpatient Jose Armando [facility] [id number] Univers 15:00:00 15:00:00 MARY stephens [facility] 2020-06-27 2020-06-27 Outpatient Jose Armando [facility] [id number] Univers 13:00:00 13:00:00 FOREST [facility] 2020-06-15 2020-06-[address] [facility] [id number] Univers 09:15:00 09:15:00 [facility] 2020-05-31 2020-05-31 Outpatient Jose Armando [facility] [facility] [id number] Univers 11:45:00 11:45:00 WONDIFUL krystal gallego [facility] 2019-10-31 2019-11-02 Outpatient LOIS POOLE [facility] [id number] Univers 11:18:56 19:18:00 [facility] Results Test Description Test Time Test Comments Results Result Comments Source Glycosylated Hemoglobin (A1C) 2022-10-19 00:52:47 Test Item Value Reference Range Interpretation Comme nts HGB A1C (test code = 4548-4) 5.4 % 4.0-5.7 JED (test code = JED) Reference RangesNormal: <5.7%Prediabetes: 5.7 - 6.4%Diabetes: > 6.5% Lab Interpretation (test code = Normal 16745-4) [facility] [id number] 21:00:16 Test Item Value Reference Range Interpretation Comments CK (test code = 9287939743) 1140 U/L 33-194 H Lab Interpretation (test code = Abnormal 40230-7) [facility]line[facility] [id number] 17:30:53 Test Item Value Reference Interpretation Comments Range TROPONIN I (test 0.028 ng/mL See_Comment [Automated code = 5418786973) message] The system which generated this result transmitted reference range : <=0.034. The reference range was not used to interpret this result as normal/abnormal . JED (test code = Reference (Normal) JED) Range (defined by the 99th percentile reference limit): <= 0.034 ng/mL Note: Cardiac troponin begins to rise 3-4 hours after the onset of ischemia. Repeat in 4-6 hours if the sample was drawn within 3-4 hours of the onset of the symptom and found normal. Diagnosis of myocardial injury is made with acute changes in cTn concentrations with at least one serial sample above the 99th percentile upper reference limit (URL), taken together with the patient's clinical presentation. Biotin has been reported to cause a negative bias, interpret results relative to patient's use of biotin. Lab Interpretation Normal (test code = 94501-5) [facility] (CREATINE KINASE) + [id number] 17:27:32 Test Item Value Reference Range Interpretation Comments CK (test code = 1021 U/L 33-194 H [id number]) CK-MB (test code = 11.00 ng/mL See_Comment H [Automat ed 9255388848) message] The system which generated this result transmitted reference range : <=3.50. The reference range was not used to interpret this result as normal/abnormal . CKMB INDEX (test code 1.1 % 0.0-2.5 = 3524608039) JED (test code = JED) Biotin has been reported to cause a negative bias, interpret results relative to patient's use of biotin. Lab Interpretation Abnormal (test code = 57091-1) [facility] WITH [id number] 15:46:33 Test Item Value Reference Range Interpretation Comments WBC (test code = See_Comment H [Automated 6690-2) message] The system which generated this result transmit aguilar reference range : 4.30 - 11.10 10*3/?L. The reference range was not used to interpret this result as normal/abnormal . RBC (test code = See_Comment L [Automated 789-8) message] The system which generated this result transmit aguilar reference range : 3.93 - 5.25 10*6/?L. The reference range was not used to interpret this result as normal/abnormal . HGB (test code = 10.3 g/dL 11.6-15.0 L 718-7) HCT (test code = 31.3 % 35.7-45.2 L 4544-3) MCV (test code = 84.8 fL 80.6-95.5 787-2) MCH (test code = 27.9 pg 25.9-32.8 785-6) MCHC (test code = 32.9 g/dL 31.6-35.1 786-4) RDW-SD (test code = 42.1 fL 39.0-49.9 05538-4) RDW-CV (test code = 13.5 % 12.0-15.5 788-0) PLT (test code = See_Comment [Automated 777-3) message] The system which generated this result transmit aguilar reference range : 166 - 358 10*3/ ?L. The reference range was not u sed to interpret th is result as normal/abnormal . MPV (test code = 10.8 fL 9.5-12.9 65779-8) NRBC/100 WBC (test See_Comment [Automat ed code = 4454155211) message] The system which generated this result transmit aguilar reference range : 0.0 - 10.0 /100 WBCs. The reference range was not used to interpret this result as normal/abnormal . NRBC x10^3 (test code See_Comment [Auto mated = 6613135525) message] The system which generated this result transmit aguilar reference range : 10*3/?L. The reference range was not used to interpret this result as normal/abnormal . GRAN MAT (NEUT) % 86.8 % (test code = 770-8) IMM GRAN % (test code 0.60 % = 7000673783) LYMPH % (test code = 6.2 % 736-9) MONO % (test code = 5.9 % 5905-5) EOS % (test code = 0.2 % 713-8) BASO % (test code = 0.3 % 706-2) GRAN MAT x10^3(ANC) 15.04 10*3/uL 1.88-7.09 H (test code = 7702246481) IMM GRAN x10^3 (test 0.10 10*3/uL 0.00-0.06 H code = 6760109167) LYMPH x10^3 (test code 1.08 10*3/uL 1.32-3.29 L = 731-0) MONO x10^3 (test code 1.03 10*3/uL 0.33-0.92 H = 742-7) EOS x10^3 (test code = 0.03 10*3/uL 0.03-0.39 711-2) BASO x10^3 (test code 0.06 10*3/uL 0.01-0.07 = 704-7) Lab Interpretation Abnormal (test code = 30213-2) [facility]ETHANOL2022-12-08 15:08:18 ALCOHOL<10mg/dL10/18/2022 9:08 [facility] Dxwltxfa12-627 Toxic>100 Depression of ELECTRONIC PUBLISHER>400 Fatalities ReportedUnAsp[facility] HospitalMAGNESIUM2022-12-08 15:04:45 Test Item Value Reference Range Interpretation Comments MAGNESIUM (test code = 4771432590) 1.7 mg/dL 1.7-2.4 Lab Interpretation (test code = Normal 92572-5) [facility]line[facility]. METABOLIC PANEL (40029)2022-10-18 15:04:24 Test Item Value Reference Range Interpretation Comments NA (test code = 133 mmol/L 135-145 L 4245620804) K (test code = 4.0 mmol/L 3.5-5.0 4734048545) CL (test code = 97 mmol/L 98-108 L 5853361780) CO2 TOTAL (test code = 22 mmol/L 23-31 L 5988218755) AGAP (test code = 2-16 8557500310) BUN (test code = 15 mg/dL 7-23 4322837555) GLUCOSE (test code = 122 mg/dL 70-110 H 2118307791) CREATININE (test code = 0.60 mg/dL 0.50-1.04 6934484027) TOTAL BILI (test code = 0.9 mg/dL 0.1-1.7 4142911376) CALCIUM (test code = 9.0 mg/dL 8.6-10.6 0627654739) T PROTEIN (test code = 7.9 g/dL 6.3-8.2 0534771951) ALBUMIN (test code = 4.2 g/dL 3.5-5.0 7019218251) ALK PHOS (test code = 71 U/L 34-122 0110389750) ALTv (test code = 24 U/L 5-35 1742-6) AST(SGOT) (test code = 54 U/L 13-40 H 1538998654) eGFR (test code = mL/min/1.73m2 8798463933) JED (test code = JED) Association of Glomerular Filtration Rate (GFR) and Staging of Kidney Disease* + --+ --+ ------+| GFR (mL/min/1.73 m2) ?| With Kidney Damage ?| ?Without Kidney Damage+ --------+ --------+ +| ?>90 ?| ?Stage one ?| ? Normal ?+ ---+ ---+ -------+| ?60-89 ?| ?Stage two ?| ? Decreased GFR ? + --+ --+ ------+| ?30-59 ?| ?Stage three ?| ? Stage three ? + --+ --+ ------+| ?15-29 ?| ?Stage four ? | ? Stage four ?+ ---+ ---+ -------+| ?<15 (or dialysis) ? ?| ?Stage five ? | ? Stage five ?+ ---+ ---+ -------+ *Each stage assumes the associated GFR level has been in effect for at least three months. ?Stages 1 to 5, with or without kidney disease, indicate chronic kidney disease. Notes: Determination of stages one and two (with eGFR >59mL/min/1.73 m2) requires estimation of kidney damage for at least three months as defined by structural or functional abnormalities of the kidney, manifested by either:Pathological abnormalities or Markers of kidney damage (including abnormalities in the composition of the blood or urine or abnormalities in imaging tests). Lab Interpretation Abnormal (test code = 58823-1) [facility]OSPH[facility]2022-12-08 15:04:24 Test Item Value Reference Range Interpretation Comments PHOSPHORUS (test code = 9951904880) 3.4 mg/dL 2.5-5.0 Lab Interpretation (test code = Normal 96193-0) [facility]"
[2022-11-06] MEDS ORDERED: CEFTRIAXONE 1000 MG/VIAL ONE (13:27)
[2022-11-06] MEDS ORDERED: NA CHLORIDE 0.9% 500 ML ONE (13:28)
[2022-11-06] MEDS ORDERED: NA CHLORIDE 0.9% 50 ML IV ONE (13:28)
--- NOTE | 2022-11-06 13:37 | RAD REPORT ---
EXAM DESCRIPTION: RAD - Chest Single View - 11/06/2022 1:28 pm CLINICAL HISTORY: COUGH COMPARISON: Chest Single View dated 09/16/2016; CHEST SINGLE VIEW dated 12/04/2014 FINDINGS: Lines: None. Lungs: No evidence of edema or pneumonia. Pleural: No significant pleural effusions or pneumothorax. Cardiac: The heart size is within normal limits. Mediastinum: Within normal limits. Bones: No acute fractures. Other: None IMPRESSION: No acute cardiopulmonary disease.
--- NOTE | 2022-11-06 14:00 | EDPHYS ---
Physician Documentation [facility] Name: Steph Peterson Age: 77 yrs Sex: Female : 1945 Arrival Date: 11/06/2022 Time: 12:49 Bed 16 Private MD: ED Physician Ricky Cottrell HPI: 11/06 13:47 This 77 yrs old Unknown Female presents to ER via EMS with complaints of SYNCOPE, CP jose AND WEAKNESS. 13:47 The patient or guardian reports chest pain that is located primarily in the anterior jose chest wall. Onset: just prior to arrival. WEAK AT NH, RESPONSIVE AND AWAKE. The patient presents with trouble concentrating. Onset: The symptoms/episode began/occurred this morning. Possible causes: CVA or TIA, head injury, low blood sugar, seizure, sepsis. The patient has experienced near-syncope, felt dizzy. Associated signs and symptoms: Pertinent positives: chest pain, dizziness, weakness. Historical: - Allergies: 13:05 No Known Allergies; kr3 - PMHx: 13:05 Hypertension; kr3 - Immunization history:: Adult Immunizations up to date. - Social history:: Smoking status: unknown. - Family history:: not pertinent. ROS: 13:47 Constitutional: Negative for fever, chills, and weight loss, Eyes: Negative for injury, jsoe pain, redness, and discharge, ENT: Negative for injury, pain, and discharge, Neck: Negative for injury, pain, and swelling, Cardiovascular: Negative for chest pain, palpitations, and edema, Respiratory: Negative for shortness of breath, cough, wheezing, and pleuritic chest pain, Abdomen/GI: Negative for abdominal pain, nausea, vomiting, diarrhea, and constipation, Back: Negative for injury and pain, : Negative for injury, bleeding, discharge, and swelling, MS/Extremity: Negative for injury and deformity, Skin: Negative for injury, rash, and discoloration, Psych: Negative for depression, anxiety, suicide ideation, homicidal ideation, and hallucinations, Allergy/Immunology: Negative for hives, rash, and allergies, Endocrine: Negative for neck swelling, polydipsia, polyuria, polyphagia, and marked weight changes, Hematologic/Lymphatic: Negative for swollen nodes, abnormal bleeding, and unusual bruising. 13:47 Neuro: Positive for weakness. Exam: 13:47 Constitutional: This is a well developed, well nourished patient who is awake, alert, jose and in no acute distress. Head/Face: Normocephalic, atraumatic. Eyes: Pupils equal round and reactive to light, extra-ocular motions intact. Lids and lashes normal. Conjunctiva and sclera are non-icteric and not injected. Cornea within normal limits. Periorbital areas with no swelling, redness, or edema. ENT: Nares patent. No nasal discharge, no septal abnormalities noted. Tympanic membranes are normal and external auditory canals are clear. Oropharynx with no redness, swelling, or masses, exudates, or evidence of obstruction, uvula midline. Mucous membranes moist. Neck: Trachea midline, no thyromegaly or masses palpated, and no cervical lymphadenopathy. Supple, full range of motion without nuchal rigidity, or vertebral point tenderness. No Meningismus. Chest/axilla: Normal chest wall appearance and motion. Nontender with no deformity. No lesions are appreciated. Cardiovascular: Regular rate and rhythm with a normal S1 and S2. No gallops, murmurs, or rubs. Normal PMI, no JVD. No pulse deficits. Respiratory: Lungs have equal breath sounds bilaterally, clear to auscultation and percussion. No rales, rhonchi or wheezes noted. No increased work of breathing, no retractions or nasal flaring. Abdomen/GI: Soft, non-tender, with normal bowel sounds. No distension or tympany. No guarding or rebound. No evidence of tenderness throughout. Back: No spinal tenderness. No costovertebral tenderness. Full range of motion. Female : Normal external genitalia. Skin: Warm, dry with normal turgor. Normal color with no rashes, no lesions, and no evidence of cellulitis. MS/ Extremity: Pulses equal, no cyanosis. Neurovascular intact. Full, normal range of motion. Psych: Awake, alert, with orientation to person, place and time. Behavior, mood, and affect are within normal limits. 13:47 Neuro: Orientation: is normal, appropriate for stated age, no acute changes, Mentation: appropriate for stated age, no acute changes, per friend(s), Memory: appropriate for stated age, no acute changes, Motor: moves all fours, Sensation: no obvious gross deficits, appropriate no acute changes, Gait: not tested. seizure activity, is not displayed by the patient. 16:28 ECG was reviewed by the Attending Physician. [facility] Vital Signs: 12:50 BP 112 / 64; Pulse 74; Resp 16; Temp 98.2; Pulse Ox 96% on R/A; Weight 56.7 kg; Height kr3 5 ft. 4 in. (162.56 cm); 14:34 BP 109 / 63; Pulse 77; Resp 16; Pulse Ox 96% on R/A; kr3 19:00 BP 142 / 80; Pulse 93; Resp 22; Temp 98.2(A); Pulse Ox 100% on R/A; pf1 20:00 BP 123 / 88; Pulse 88; Resp 16; Pulse Ox 99% on R/A; pf1 21:00 BP 145 / 70; Pulse 86; Resp 13; Temp 97.9(A); Pulse Ox 99% on R/A; pf1 22:00 BP 149 / 76; Pulse 88; Resp 14; Temp 98(A); Pulse Ox 98% on R/A; pf1 12:50 Body Mass Index 21.46 (56.70 kg, 162.56 cm) kr3 MDM: 13:07 Patient medically screened. jose 13:55 Differential diagnosis: abnormal EKG, acute myocardial infarction, acute pericarditis, jose anxiety, coronary artery disease congestive heart failure cholecystitis, Cholelithiasis esophagitis, gastritis, hiatal hernia, pancreatitis, peptic ulcer disease, pneumonia, stable angina, unstable angina. Differential Diagnosis altered mental status, sepsis, flu. HEART Score: History: Slightly Suspicious (0), ECG: Normal (0), Age: > or = 65 years (2), Risk Factors: > or = 3 Risk factors for atherosclerotic disease (2), [Hypercholesterolemia] [Hypertension] [+ Family HX] [Obesity] Troponin: < or = 1 x Normal Limit (0). Differential Diagnosis: cardiac arrhythmia, cerebrovascular accident, GI bleed, idiopathic syncope, pseudo seizure, seizure, transient ischemic attack, vasovagal episode, CVA, electrolyte abnormality, hypoglycemia, intracranial bleed, meningitis, pneumonia, seizure, sepsis, TIA, UTI. The patient was not given aspirin in the Emergency Department. Not indicated due to patient's past medical history. The patient's deep vein thrombosis risk score was calculated as follows: Total Score: 0. This patient was found to be at low risk for a deep vein thrombosis by using the Well's assessment criteria. The patient's pulmonary embolism risk score was calculated as follows: Total Score: 0-2 points. This patient was found to be at low risk for a pulmonary embolism by using the Well's assessment criteria. CJ Risk Score: 1 - Three or more CAD risk factors, 1 - Recent [<24hrs] Severe Angina, TOTAL SCORE = 2. Data reviewed: vital signs, nurses notes, EMS record, lab test result(s), EKG, radiologic studies, CT scan, plain films. 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 Test interpretation: by ED physician or midlevel provider: ECG, plain radiologic studies. 11/06 13:09 Order name: Basic Metabolic Panel; Complete Time: 15:02 [facility] 11/06 13:09 Order name: CBC with Diff; Complete Time: 14:52 [facility] 11/06 13:09 Order name: LFT's; Complete Time: 15:02 [facility] 11/06 13:09 Order name: Magnesium; Complete Time: 15:02 [facility] 11/06 13:09 Order name: NT PRO-BNP; Complete Time: 15:02 [facility] 11/06 13:09 Order name: PT-INR; Complete Time: 14:52 [facility] 11/06 13:09 Order name: Troponin HS; Complete Time: 15:02 [facility] 11/06 13:09 Order name: Lipase; Complete Time: 15:02 [facility] 11/06 13:09 Order name: Lactate w/ 2H reflex if indic.; Complete Time: 14:52 [facility] 11/06 13:09 Order name: Urine Microscopic Only [facility] 11/06 13:09 Order name: Blood Culture Adult (2) [facility] 11/06 13:09 Order name: COVID-19/FLU A+B [facility] 11/06 14:58 Order name: Urine Dipstick-Ancillary; Complete Time: 14:59 [facility] 11/06 15:22 Order name: Urine Culture [facility] 11/06 13:09 Order name: XRAY Chest (1 view); Complete Time: 13:55 [facility] 11/06 13:09 Order name: CT Head Brain wo Cont; Complete Time: 14:36 [facility] 11/06 16:14 Order name: T4 Free [facility] 11/06 16:14 Order name: Thyroid Stimulating Hormone [facility] 11/06 16:14 Order name: Urinalysis [facility] 11/06 16:14 Order name: Basic Metabolic Panel [facility] 11/06 16:14 Order name: Basic Metabolic Panel [facility] 11/06 16:14 Order name: CBC with Automated Diff [facility] 11/06 16:14 Order name: CBC with Automated Diff [facility] 11/06 16:14 Order name: Lipid Profile [facility] 11/06 16:14 Order name: Lipid Profile [facility] 11/06 20:36 Order name: Troponin High Sensitivity [facility] 11/07 07:35 Order name: US [facility] 11/06 13:09 Order name: EKG; Complete Time: 13:10 [facility] 11/06 13:09 Order name: Cardiac monitoring; Complete Time: 14:28 [facility] 11/06 13:09 Order name: EKG - Nurse/Tech; Complete Time: 14:28 [facility] 11/06 13:09 Order name: IV Saline Lock; Complete Time: 13:16 [facility] 11/06 13:09 Order name: Labs collected and sent; Complete Time: 14:28 [facility] 11/06 13:09 Order name: O2 Per Protocol; Complete Time: 14:28 [facility] 11/06 13:09 Order name: O2 Sat Monitoring; Complete Time: 14:28 [facility] 11/06 13:09 Order name: Urine Dipstick-Ancillary (obtain specimen); Complete Time: 15:02 [facility] 11/06 16:14 Order name: [facility] Cons [facility] 11/06 16:14 Order name: Regular EDWI EC:28 Rate is 84 beats/min. Rhythm is regular. QRS [place] is Normal. [place] interval is normal. QRS jose interval is normal. QT interval is normal. No Q waves. T waves are Normal. No ST changes noted. Clinical impression: NSR w/ Non-specific ST/T Changes and No evidence of ischemia. Interpreted by me. Reviewed by me. Administered Medications: 11:20 Drug: Rocephin (cefTRIAXone) 1 grams Route: IV; Rate: per protocol; Site: right kr3 antecubital; 16:46 Follow up: Response: No adverse reaction; IV Status: Completed infusion; IV Intake: [id number] 14:20 Drug: NS 0.9% 500 ml Route: IV; Rate: bolus; Site: right antecubital; kr3 16:46 Follow up: Response: No adverse reaction; IV Status: Completed infusion; IV Intake: kr3 500ml 15:15 Drug: Aspirin Chewable Tablet 81 mg Route: PO; kr3 16:45 Follow up: Response: No adverse reaction kr3 15:15 Drug: Pepcid (famotidine) 20 mg Route: IVP; Site: right antecubital; kr3 16:44 Follow up: Response: No adverse reaction kr3 Disposition Summary: 11/06/22 14:00 Hospitalization Ordered Hospitalization Status: Observation jose Provider: Sumeet Miles cha Condition: Fair jose Problem: new jose Symptoms: have improved jose Bed/Room Type: Standard jose Location: Telemetry/MedSurg (observation)(11/07/22 07:19) eb Room Assignment: [facility](11/07/22 07:19) Diagnosis - Syncope Near jose - Chest pain, unspecified jose - Weakness jose - Dementia in other diseases classified elsewhere without behavioral disturbance jose - Anemia, unspecified jose - Elevated white blood cell count jose - Unspecified kidney failure jose Forms: - Medication Reconciliation Form jose - SBAR form jose Signatures: Dispatcher [employer] EDRicky Sweeney MD MD cha Garcia, Cindy, RN RN Deanna Omalley Kelley, RN RN kr3 Corrections: (The following items were deleted from the chart) 22:17 14:00 Telemetry/MedSurg (observation) jose cg 22:17 14:00 jose cg 11/07 07:19 11/06 22:17 [facility] ER HOLD cg eb 11/07 07:19 11/06 22:17 ERHOLD- cg eb
--- NOTE | 2022-11-06 14:00 | ER ---
Nurse's Notes [facility] Name: Steph Peterson Age: 77 yrs Sex: Female : 1945 Arrival Date: 11/06/2022 Time: 12:49 Bed 16 Private MD: Diagnosis: Syncope Near;Chest pain, unspecified;Weakness;Dementia in other diseases classified elsewhere without behavioral disturbance;Anemia, unspecified;Elevated white blood cell count;Unspecified kidney failure Presentation: 11/06 12:50 Chief complaint: EMS states: toned out for unresponsive, not breathing patient. once on kr3 scene I tapped the patients shoulder and she opened her eyes. Nurse at [facility] stated she had a syncopal episode in the wheel chair, they moved her to the bed and called the ambulance. Coronavirus screen: Vaccine status: Patient reports receiving the 2nd dose of the covid vaccine. Ebola Screen: Patient denies travel to an Ebola-affected area in the 21 days before illness onset. Initial Sepsis Screen: Does the patient meet any 2 criteria? No. Patient's initial sepsis screen is negative. Does the patient have a suspected source of infection? No. Patient's initial sepsis screen is negative. Risk Assessment: Do you want to hurt yourself or someone else? Patient reports no desire to harm self or others. Onset of symptoms was November 06, 2022. 12:50 Method Of Arrival: EMS: [facility] kr3 12:50 Acuity: SLOANE 3 kr3 Triage Assessment: 13:07 General: Appears in no apparent distress. comfortable, Behavior is calm. kr3 Historical: - Allergies: 13:05 No Known Allergies; kr3 - PMHx: 13:05 Hypertension; kr3 - Immunization history:: Adult Immunizations up to date. - Social history:: Smoking status: unknown. - Family history:: not pertinent. Screenin:00 [facility] ED Fall Risk Assessment (Adult) History of falling in the last 3 months, pf1 including since admission No falls in past 3 months (0 pts) Confusion or Disorientation Yes (5 pts) Intoxicated or Sedated No (0 pts) Impaired Gait Yes (1 pt) Mobility Assist Device Used Yes (1 pt) Altered Elimination Yes (1 pt) Score/Fall Risk Level 3 or more points = High Risk Oriented to surroundings, Maintained a safe environment, Educated pt \T\ family on fall prevention, incl call for assistance when getting out of bed, Assessed \T\ reinforced patient's understanding of fall precautions, Provided non-skid footwear, Hourly rounding (assess needs \T\ fall precautionary measures) done, Used ambulatory aids as needed (educated on \T\ assisted with), Used gait belt as appropriate Implemented a Fall Risk Plan of Care, Apply high fall risk patient identification: yellow non skid footwear/ fall signage, Remained w/in arm's length of patient and in sight while toileting, Offered frequent toileting (1:1 observation), Utilized family, sitter, or virtual underwriting consultant as indicated. Abuse screen: Denies threats or abuse. 19:00 Nutritional screening: No deficits noted. Tuberculosis screening: No symptoms or risk pf1 factors identified. Assessment: 14:34 Reassessment: Patient appears in no apparent distress at this time. Patient and/or kr3 family updated on plan of care and expected duration. Pain level reassessed. Patient is alert, oriented x 3, equal unlabored respirations, skin warm/dry/pink. 19:00 General: Appears in no apparent distress. comfortable, well groomed, well developed, pf1 Behavior is appropriate for age, quiet. 19:00 Pain: Denies pain. Neuro: Level of Consciousness is awake, alert, obeys commands, pf1 Oriented to person, Appropriate for age history of dementia. Cardiovascular: No deficits noted. Respiratory: No deficits noted. GI: No deficits noted. No signs and/or symptoms were reported involving the gastrointestinal system. Abdomen is round non-distended, Bowel sounds present X 4 quads. Abd is soft and non tender X 4 quads. : No deficits noted. EENT: No deficits noted. No signs and/or symptoms were reported regarding the EENT system. Derm: No deficits noted. Musculoskeletal: No deficits noted. No signs and/or symptoms reported regarding the musculoskeletal system. 20:00 Reassessment: Patient appears in no apparent distress at this time. No changes from pf1 previously documented assessment. Patient and/or family updated on plan of care and expected duration. Pain level reassessed. 21:00 Reassessment: Patient appears in no apparent distress at this time. No changes from pf1 previously documented assessment. Patient and/or family updated on plan of care and expected duration. Pain level reassessed. 22:00 Reassessment: Patient appears in no apparent distress at this time. No changes from pf1 previously documented assessment. Patient and/or family updated on plan of care and expected duration. Pain level reassessed. Vital Signs: 12:50 BP 112 / 64; Pulse 74; Resp 16; Temp 98.2; Pulse Ox 96% on R/A; Weight 56.7 kg; Height kr3 5 ft. 4 in. (162.56 cm); 14:34 BP 109 / 63; Pulse 77; Resp 16; Pulse Ox 96% on R/A; kr3 19:00 BP 142 / 80; Pulse 93; Resp 22; Temp 98.2(A); Pulse Ox 100% on R/A; pf1 20:00 BP 123 / 88; Pulse 88; Resp 16; Pulse Ox 99% on R/A; pf1 21:00 BP 145 / 70; Pulse 86; Resp 13; Temp 97.9(A); Pulse Ox 99% on R/A; pf1 22:00 BP 149 / 76; Pulse 88; Resp 14; Temp 98(A); Pulse Ox 98% on R/A; pf1 12:50 Body Mass Index 21.46 (56.70 kg, 162.56 cm) kr3 ED Course: 12:49 Patient arrived in ED. kr3 13:00 Maintain EMS IV. Gauge \T\ site: 20 G R wrist. kr3 13:05 Triage completed. kr3 13:07 Ricky Cottrell MD is Attending Physician. jose 13:12 Cecilia Tineo RN is Primary Nurse. kr3 13:15 Arm band placed on right wrist. Patient placed in an exam room, on a stretcher. kr3 13:30 XRAY Chest (1 view) In Process Unspecified. EDMS 13:35 CT Head Brain wo Cont In Process Unspecified. EDMS 13:58 Sumeet Miles is Hospitalizing Provider. jose 14:33 Inserted saline lock: 22 gauge in right antecubital area, using aseptic technique. kr3 Blood collected. 15:02 Urine Microscopic Only Sent. kr3 15:02 Blood Culture Adult (2) Sent. kr3 19:00 Patient has correct armband on for positive identification. Placed in gown. Bed in low pf1 position. Call light in reach. Side rails up X 1. Side rails up X2. 19:00 Lights dimmed. Warm blanket given. Pillow given. Head of bed elevated. pf1 19:05 IV discontinued, intact, bleeding controlled, No redness/swelling at site. Pressure pf1 dressing applied, 22 gauge IV removed from RAC from clot formation in IV catheter jloop, no IV to Right wrist at this time at shift change. 19:30 No provider procedures requiring assistance completed. Inserted saline lock: 22 gauge pf1 in left antecubital area, using aseptic technique. Blood collected. Administered Medications: 11:20 Drug: Rocephin (cefTRIAXone) 1 grams Route: IV; Rate: per protocol; Site: right kr3 antecubital; 16:46 Follow up: Response: No adverse reaction; IV Status: Completed infusion; IV Intake: [id number] 14:20 Drug: NS 0.9% 500 ml Route: IV; Rate: bolus; Site: right antecubital; kr3 16:46 Follow up: Response: No adverse reaction; IV Status: Completed infusion; IV Intake: kr3 500ml 15:15 Drug: Aspirin Chewable Tablet 81 mg Route: PO; kr3 16:45 Follow up: Response: No adverse reaction kr3 15:15 Drug: Pepcid (famotidine) 20 mg Route: IVP; Site: right antecubital; kr3 16:44 Follow up: Response: No adverse reaction kr3 Medication: 22:33 VIS not applicable for this client. pf1 Intake: 16:46 IV: 10ml; Total: 10ml. kr3 16:46 IV: 500ml; Total: 510ml. kr3 Outcome: 14:00 Decision to Hospitalize by Provider. [facility] 19:00 Instructed on the need for admit. pf1 22:17 Condition: stable pf1 22:17 Admitted to ER Hold. Please see [facility] for further documentation. pf1 11/07 10:29 Patient left the ED. ss Signatures: Dispatcher [employer] EDMS Ricky Cottrell MD MD cha Smirch, Shelby, RN RN Cecilia Tineo RN RN kr3 Uzma kuo RN RN pf1 Corrections: (The following items were deleted from the chart) 11/06 14:33 14:32 Maintain EMS IV. kr3 kr3
--- NOTE | 2022-11-06 14:10 | RAD REPORT ---
EXAM DESCRIPTION: CT - Head Brain Wo Cont - 11/06/2022 1:33 pm CLINICAL HISTORY: Syncope, recurrent COMPARISON: No comparisons TECHNIQUE: All CT scans are performed using dose optimization technique as appropriate and may inclu de automated exposure control or mA/KV adjustment according to patient size. FINDINGS: No intracranial hemorrhage, hydrocephalus or extra-axial fluid collection.No areas of brai n edema or evidence of midline shift. Cerebral atrophy with chronic small vessel ischemic changes. The paranasal sinuses and mastoids are clear. The calvarium is intact. IMPRESSION: No acute intracranial abnormality.
[2022-11-06 14:33] LABS: Lymphocytes % 13.5 % (15.3-44.8); MCV 80.9 fL (80-100); RBC Red Blood Cell Count 3.46 M/uL (3.86-4.86)
[2022-11-06 14:43] LABS: Protime INR 1.24
[2022-11-06 14:58] LABS: Urine Blood Trace-intact (Negative); Urine Glucose Negative (Negative); Urine Protein 2+ (Negative); Urine Specific Gravity 1.015 (1.005-1.030); Urine pH 7.5 (5.0-7.0)
[2022-11-06 15:01] LABS: Albumin 2.7 g/dL (3.4-5.0); Bilirubin Direct 0.2 mg/dL (0-0.2); Bilirubin Total 0.6 mg/dL (0.2-1.0); Magnesium 1.8 mg/dL (1.6-2.4); Troponin High Sensitivity 47.5 pg/mL (<58.9)
[2022-11-06 15:17] LABS: Urine Bacteria <20 /HPF (<20); Urine Crystals Unidentified Few /HPF (None Seen)
[2022-11-06] MEDS ORDERED: ASPIRIN 81 MG CHEWABLE TABLET ONE (15:17)
[2022-11-06] MEDS ORDERED: FAMOTIDINE 20 MG/2 ML VIAL IV ONE (15:17)
[2022-11-06 15:19] LABS: SARS-COV-2 RT PCR NEGATIVE (NEGATIVE)
[2022-11-06] MEDS ORDERED: ONDANSETRON 4 MG/2 ML VIAL IV PRN (16:04)
[2022-11-06] MEDS ORDERED: ACETAMINOPHEN 500 MG TAB PO PRN (16:04)
[2022-11-06] MEDS: NA CHLORIDE 0.9% 1,000 ML IV SCH (17:00)
[2022-11-06 17:16] VITALS: BMI 21.4
[2022-11-06] MEDS ORDERED: NA CHLORIDE 0.9% 1,000 ML ONE (18:44)
--- NOTE | 2022-11-06 19:18 | P.HP ---
Certification for Inpatient Patient admitted to: Observation With expected LOS: <2 Midnights Patient will require the following post-hospital care: Prison Practitioner: I am a practitioner with admitting privileges, knowledge of patient current condition, hospital course, and medical plan of care. Services: Services provided to patient in accordance with Admission requirements found in Title 42 Section 412.3 of the Code of Federal Regulations Patient History Date of Service: 11/06/22 Primary Care Provider: Daquan at [facility] per family Reason for admission: Chest pain, weakness History of Present Illness: This is a 71-year-old female wit [facility] dementia, hypertension and arthritis. She presents from [facility] with c/o weakness, syncope and chest pain. Unable to obtain history due to patients underlining dementia. Patients son was at the bedside and states that the facility told him that the patient was unresponsive prior to coming to the emergency room. Patient was evaluated at the bedside. Neuro exam was negative for any acute findings. She denies any complaints headache, nausea, or vomiting. No visual complaints. No chest pain or shortness of breath. No abdominal pain during examination. Patients family stated that patient is currently on an antibiotic at the nursing facility for UTI. Head CT and chest x-ray were negative for any acute findings. Patient will be admitted for observation under Dr. Fish and we will continue with neuro checks and order a urinalysis. Allergies lisinopril Allergy (Verified 09/16/16 21:28) Anaphylaxis Home medications list reviewed: Yes Home Medications: Folic Acid 1 mg PO DAILY 09/16/16 Paroxetine HCl 20 mg PO DAILY 09/16/16 Ciprofloxacin HCl 500 mg PO BID #14 tablet 09/17/16 Amlodipine [Norvasc*] 5 mg PO DAILY #30 tab 09/18/16 Famotidine 20 mg PO BEDTIME #30 tablet 09/18/16 Metoprolol Tartrate [Lopressor*] 25 mg PO BID #60 tab 09/18/16 - Past Medical/Surgical History Diabetic: No -: htn -: Dementia -: Arthritis Past Surgical History: Unable to obtain - Family History Family History: Reviewed- Non-Contributory - Social History Smoking Status: Unknown if ever smoked Alcohol use: Yes CD- Drugs: No Place of Residence: Shelter Review of Systems is unable to be obtained (Patient is from a [place] [facility], family at bedside but unable to obtain accurate information) General: Weakness Physical Examination - Vital Signs Temperature: 98.2 F Blood Pressure: 112/64 Pulse: 74 Respirations: 16 Pulse Ox (%): 96 - Physical Exam General: Alert, Demented HEENT: Atraumatic, Normocephalic, PERRLA Neck: Supple, 2+ carotid pulse no bruit Respiratory: Clear to auscultation bilaterally, Normal air movement Cardiovascular: No edema, Normal pulses Capillary refill: <2 Seconds Gastrointestinal: Normal bowel sounds, No tenderness Musculoskeletal: No clubbing, No swelling Integumentary: No erythema, No warmth Neurological: Normal strength at 5/5 x4 extr, Sensation intact, Dementia Lymphatics: No axilla or inguinal lymphadenopathy - Studies Laboratory Data (last 24 hrs) 11/06/22 14:15: PT 13.6 H, INR 1.24 11/06/22 14:15: WBC 14.60 H, Hgb 9.3 L, Hct 28.0 L, Plt Count 655 H 11/06/22 14:15: Sodium 137, Potassium 4.0, BUN 42 H, Creatinine 1.32 H, Glucose 114 H, Magnesium 1.8, Total Bilirubin 0.6, AST 41 H, ALT 41, Alkaline Phosphatase 115, Lipase 371 Assessment and Plan - Plan Assessment Chest pain, unknown etiology Weakness Urinary tract infection Hypertension Right foot wound PPX Chest pain, unknown etiology CXR- negative for any acute findings Serial troponins Telemetry monitoring Weakness Head CT- No intracranial hemorrhage, hydrocephalus or extra-axial fluid collection. No areas of brain edema or evidence of midline shift. Cerebral atrophy with chronic small vessel ischemic changes. Neuro checks IV fluids with NS at 75 ml/hr Urinary tract infection Per family members, patient is on Cipro at the nursing for UTI Urinalysis ordered, follow up with results Consult ID Hypertension- resume home medications when appropriate Right foot wound- wound care consulted PPX- Lovenox, Protonix Discharge Plan: Shelter Plan to discharge in: 48 Hours - Advance Directives Does patient have a Living Will: No Does patient have a Durable POA for Healthcare: No - Code Status/Comfort Care Code Status Assessed: Yes (DNR per family) Critical Care: No Time Spent Managing Pts Care (In Minutes): 55
[2022-11-06] MEDS ORDERED: VANCOMYCIN 1 GM in NA CHLORIDE 0.9% 250 ML IVPB SCH (22:30)
[2022-11-06] MEDS ORDERED: NA CHLORIDE 0.9% 0 ML ONE (22:43)
[2022-11-06] MEDS ORDERED: VANCOMYCIN 1 GM/VIAL ONE (22:43)
[2022-11-07] MEDS ORDERED: AMPICILLIN/SULBACT 3 GM in NA CHLORIDE 0.9% 100 ML IVPB SCH (01:00)
[2022-11-07] MEDS ORDERED: AMPICILLIN/SULBACTAM 3GM/VIAL ONE ×3 (01:32→17:04)
[2022-11-07] MEDS ORDERED: NA CHLORIDE 0.9% 100 ML IV ONE ×3 (01:32→17:05)
[2022-11-07 04:07] LABS: Hematocrit 28.9 % (36.0-45.0); MCV 81.4 fL (80-100); MPV 10.4 fL (7.6-11.3); RBC Red Blood Cell Count 3.55 M/uL (3.86-4.86)
[2022-11-07 04:07] LABS: Potassium 3.3 mmol/L (3.5-5.1)
[2022-11-07] MEDS ORDERED: PANTOPRAZOLE 40MG TABLET PO ONE (06:09)
[2022-11-07] MEDS: NA CHLORIDE 0.9% 1,000 ML IV SCH ×2 (06:20→20:42)
[2022-11-07] MEDS: PANTOPRAZOLE 40MG TABLET PO SCH (06:30)
--- NOTE | 2022-11-07 07:35 | RAD REPORT ---
EXAM DESCRIPTION: - CP - 11/07/2022 5:20 am CLINICAL HISTORY: Syncope COMPARISON: Head C Spine Mpr Wo Con dated 09/16/2016 TECHNIQUE: Real-time sonographic evaluation of both carotid systems was performed. Doppler interroga tion was performed with waveform tracing bilaterally. FINDINGS: Normal high resistance waveforms are noted in both external carotid arteries. The common c arotid arteries and internal carotid arteries show normal low resistance waveforms. Mixed hard and soft plaque is present at the bilateral carotid bulbs, bilateral proximal external car otid arteries, and bilateral proximal ICAs, and right mid common carotid artery Peak systolic and end diastolic velocity values and the ICA/CCA ratios are in the non-hemodynamically significant range. Antegrade flow seen in both vertebral arteries. IMPRESSION: No evidence of a hemodynamically significant stenosis. Atherosclerotic disease present.
[2022-11-07] MEDS: ENOXAPARIN 40 MG/0.4 ML SQ SCH (08:51)
[2022-11-07] MEDS: AMPICILLIN/SULBACT 3 GM in NA CHLORIDE 0.9% 100 ML IVPB SCH ×2 (08:51→17:37)
[2022-11-07] MEDS ORDERED: ENOXAPARIN 40 MG/0.4 ML SQ ONE (08:52)
[2022-11-07 10:43] VITALS: O2SAT 98
--- NOTE | 2022-11-07 12:03 | CON ---
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 The patient was complain ing of weakness, syncope, and chest pain. Denies any headache, nausea, vomiting, chest pain, abdomin al pain, constipation, or diarrhea. Her urine is showing high WBC. Currently, the patient is being treated with Unasyn and vancomycin. The patient also has wounds to her buttocks and lower extremity region, especially involving the right foot and left great toe. Denies any other problems. Past Medical History: As per HPI. Social History: Nonsmoker, nondrinker. 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 Family History: Noncontributory. Medications: Vancomycin, Unasyn. See MAR for other medications. Allergies: LISINOPRIL. Review of Systems: A 10-point review was performed. Physical Examination: General: This is a 77-year-old female, lying in bed, not in any acute cardiopulmonary distress. Vital Signs: Temperature 97.9, pulse 90, respirations 16, blood pressure 137/71. HEENT: Unremarkable. Neck: Supple. Lungs: Basal crackles. Heart: S1, S2. Regular. Abdomen: Soft, nontender. Bowel sounds present. Extremity: Wounds noted. Laboratory Data: WBC down from 14.6 to 12.8, hemoglobin 9.4, platelets are 515. Chemistry shows BUN of 30, creatinine 0.9, albumin level is 2.7. Assessment And Plan: A 77-year-old female with urosepsis, currently being treated with Unasyn and va ncomycin. We will recommend to stop vancomycin, continue Unasyn at this time. Bilateral buttock shimon p tissue injury and moisture-associated dermatitis. Recommend to apply barrier cream and offload the buttock region. Right heel deep tissue injury, we will recommend to apply heel protector and offloa d heel. First plantar metatarsal head wound and fifth metatarsal unstageable wound, we will recommen d to apply Betadine. Left first toe ulcer, we will recommend to apply Betadine and offload all these areas. Anemia of chronic disease, moderate protein-calorie malnourishment, leukocytosis improving. We will continue current treatment and follow the patient closely. Thank you, Dr. Fish for consult. We will follow this patient. NF/MODL Voice ID: [id number] Report ID: [id number]
[2022-11-07] MEDS ORDERED: POTASSIUM 25 MEQ EFFERV TAB PO ONE (20:00)
[2022-11-07] MEDS ORDERED: VANCOMYCIN 1.25 GM in NA CHLORIDE 0.9% 250 ML IVPB SCH (21:00)
[2022-11-08] MEDS ORDERED: AMPICILLIN/SULBACTAM 3GM/VIAL ONE ×3 (04:33→17:21)
[2022-11-08] MEDS: AMPICILLIN/SULBACT 3 GM in NA CHLORIDE 0.9% 100 ML IVPB SCH ×3 (04:33→17:35)
[2022-11-08] MEDS ORDERED: NA CHLORIDE 0.9% 100 ML IV ONE ×3 (04:34→17:21)
[2022-11-08] MEDS: PANTOPRAZOLE 40MG TABLET PO SCH (05:45)
[2022-11-08 06:31] LABS: Absolute Lymphocytes (CBC) 2.5 K/uL (0.7-4.9); Hematocrit 26.2 % (36.0-45.0); Lymphocytes % 21.7 % (15.3-44.8); MCV 80.7 fL (80-100); MPV 9.2 fL (7.6-11.3); RBC Red Blood Cell Count 3.25 M/uL (3.86-4.86)
[2022-11-08 06:56] LABS: Albumin 2.4 g/dL (3.4-5.0); Bilirubin Total 0.4 mg/dL (0.2-1.0); Potassium 3.6 mmol/L (3.5-5.1)
[2022-11-08 07:00] LABS: Magnesium 1.2 mg/dL (1.6-2.4)
--- NOTE | 2022-11-08 07:11 | ECHO ---
HEIGHT: 5 ft 4 in WEIGHT: 125 lb 0 oz DATE OF STUDY: 11/07/[address]: Hawk Fish MD 2-DIMENSIONAL: YES M.MODE: YES DOPPLER: YES COLOR FLOW: YES TDS: YES PORTABLE: YES DEFINITY: BUBBLE STUDY: DIAGNOSIS: SYNCOPE CARDIAC HISTORY: CATHERIZATION: YES SURGERY: NO PROSTHETIC VALVE: NO PACEMAKER: NO MEASUREMENTS (cm) DIASTOLIC (NORMALS) SYSTOLIC (NORMALS) IVSd (0.6-1.2) LA Diam (1.9-4.0) LVEF % LVIDd (3.5-5.7) LVIDs (2.0-3.5) %FS % LVPWd (0.6-1.2) Ao Diam (2.0-3.7) 2 DIMENSIONAL ASSESSMENT: RIGHT ATRIUM: POOR STUDY LEFT ATRIUM: POOR STUDY RIGHT VENTRICLE: POOR STUDY LEFT VENTRICLE: POOR STUDY TRICUSPID VALVE: POOR STUDY MITRAL VALVE: POOR STUDY PULMONIC VALVE: POOR STUDY AORTIC VALVE: POOR STUDY PERICARDIAL EFFUSION: POOR STUDY AORTIC ROOT: POOR STUDY LEFT VENTRICULAR WALL MOTION: POOR STUDY DOPPLER/COLOR FLOW: POOR STUDY COMMENTS: 1. VERY LIMITED EXAM DUE TO POOR WINDOWS 2. UNABLE TO EVALUATE CARDIAC STRUCTURES/ FUNCTION DUE TO POOR WINDOWS TECHNOLOGIST: LEONID SCHMITZ
[2022-11-08] MEDS ORDERED: MAGNESIUM 50% 3 GM in NA CHLORIDE 0.9% 100 ML IV ONE (08:00)
[2022-11-08] MEDS ORDERED: POTASSIUM 25 MEQ EFFERV TAB PO ONE (08:00)
[2022-11-08] MEDS: ENOXAPARIN 40 MG/0.4 ML SQ SCH (09:05)
[2022-11-08] MEDS: AMLODIPINE 5 MG TAB PO SCH (09:10)
[2022-11-08] MEDS: PARoxetine HCL 10 MG TAB PO SCH (09:10)
[2022-11-08] MEDS: METOPROLOL TAR 50 MG TAB PO SCH ×2 (09:10→20:23)
[2022-11-08] MEDS: FOLIC ACID 1 MG TABLET PO SCH (09:10)
--- NOTE | 2022-11-08 17:51 | EKG ---
Test Date: 2022-11-06 Test Time: 14:00:13 Back Roll Lathe Operator: ANNIKA MEASUREMENT RESULTS: Intervals: Rate: 84 FL: 162 QRSD: 70 QT: 400 QTc: 472 [place]: P: 63 FL: 162 QRS: -16 T: 41 INTERPRETIVE STATEMENTS: Sinus rhythm with premature supraventricular complexes Cannot rule out Anterior infarct, age undetermined Abnormal ECG Compared to ECG 09/16/2016 22:12:30 Atrial premature complex(es) now present Myocardial infarct finding now present Prolonged QT interval no longer present Electronically Signed On 11-08-22 17:46:09 PIG CONVEYOR OPERATOR by Elier Mclean
[2022-11-08] MEDS ORDERED: FAMOTIDINE 20 MG TAB PO SCH (21:00)
[2022-11-09] MEDS: AMPICILLIN/SULBACT 3 GM in NA CHLORIDE 0.9% 100 ML IVPB SCH ×2 (01:16→09:42)
[2022-11-09] MEDS ORDERED: AMPICILLIN/SULBACTAM 3GM/VIAL ONE ×2 (01:16→09:22)
[2022-11-09] MEDS ORDERED: NA CHLORIDE 0.9% 100 ML IV ONE ×2 (01:17→09:17)
[2022-11-09] MEDS: PANTOPRAZOLE 40MG TABLET PO SCH (05:58)
[2022-11-09] MEDS: AMLODIPINE 5 MG TAB PO SCH (09:41)
[2022-11-09] MEDS: PARoxetine HCL 10 MG TAB PO SCH (09:41)
[2022-11-09] MEDS: FOLIC ACID 1 MG TABLET PO SCH (09:41)
[2022-11-09] MEDS: METOPROLOL TAR 50 MG TAB PO SCH (09:41)
[2022-11-09] MEDS: ENOXAPARIN 40 MG/0.4 ML SQ SCH (09:42)
--- NOTE | 2022-11-09 10:20 | P.PN ---
Subjective Date of Service: 11/07/22 Subjective: No new changes, No C/O voiced Wound care patient with severe dementia. Wound care proceeding per recommendations from infectious disease. Continue supportive care. Echocardiogram and carotid Doppler completed. Waiting for results. Review of Systems 10-point ROS is otherwise unremarkable Physical Examination - Vital Signs Temperature: 97.3 F Blood Pressure: 164/70 Pulse: 76 Respirations: 16 Pulse Ox (%): 95 - Physical Exam General: Alert, In no apparent distress, Oriented x3 Respiratory: Clear to auscultation bilaterally, Normal air movement Cardiovascular: Regular rate/rhythm, Normal S1 S2, No murmurs Gastrointestinal: Normal bowel sounds, Soft and benign, Non-distended, No tenderness Musculoskeletal: No clubbing, No swelling, No tenderness Integumentary: Erythema, Pressure ulcer Neurological: Dementia Lymphatics: No axilla or inguinal lymphadenopathy - Studies Microbiology Data (last 24 hrs): 11/06/22 14:56 Clean Catch Urine [place] Count - Final No growth. 11/06/22 14:56 Clean Catch Urine - Final No growth. Medications List Reviewed: Yes Assessment & Plan - Problems (Diagnosis) (1) Syncope Current Visit: Yes Status: Acute (2) Advanced dementia Current Visit: Yes Status: Acute (3) Pressure ulcer, stage II Current Visit: Yes Status: Acute (4) Fall Onset Date: 09/17/16 Current Visit: No Status: Acute (5) History of hypertension Current Visit: Yes Status: Acute - Plan Plan: 1. Continue with IV antibiotics 2. Wound care as ordered by infectious disease 3. Awaiting echocardiogram and carotid Doppler results 4. Supportive care for patient with advanced dementia 5. GI and DVT prophylaxis Discharge Plan: Alf Plan to discharge in: Greater than 2 days - Advance Directives Does patient have a Living Will: No Does patient have a Durable POA for Healthcare: No - Code Status/Comfort Care Code Status Assessed: Yes Code Status: Do Not Attempt Resuscitat Critical Care: No Time Spent Managing PTS Care (In Minutes): 35
--- NOTE | 2022-11-09 10:22 | P.PN ---
Date of Service: 11/08/22 Subjective Echocardiogram and carotid Doppler were negative. No significant abnormalities. At this time plan to discharge back to [place] [facility] with outpatient follow-up. Family will want patient to go back to [facility]. Review of Systems 10-point ROS is otherwise unremarkable Physical Examination - Vital Signs Reviewed - Physical Exam General: Patient with dementia and really does not communicate Respiratory: Clear to auscultation bilaterally, Normal air movement Cardiovascular: Regular rate/rhythm, Normal S1 S2, No murmurs Gastrointestinal: Normal bowel sounds, Soft and benign, Non-distended, No tenderness Musculoskeletal: No clubbing, No swelling, No tenderness Integumentary: Erythema, Pressure ulcer Neurological: Dementia Assessment & Plan - Problems (Diagnosis) (1) Syncope Current Visit: Yes Status: Acute (2) Advanced dementia Current Visit: Yes Status: Acute (3) Pressure ulcer, stage II Current Visit: Yes Status: Acute (4) Fall Onset Date: 09/17/16 Current Visit: No Status: Acute (5) History of hypertension Current Visit: Yes Status: Acute - Plan Continue with plan of care as mentioned below: 1. Continue with IV antibiotics 2. Wound care as ordered by infectious disease 3. Awaiting echocardiogram and carotid Doppler results 4. Supportive care for patient with advanced dementia 5. GI and DVT prophylaxis
[2022-11-09 11:30] LABS: Absolute Lymphocytes (CBC) 2.4 K/uL (0.7-4.9); Hematocrit 25.3 % (36.0-45.0); Lymphocytes % 22.1 % (15.3-44.8); MCV 80.5 fL (80-100); MPV 9.3 fL (7.6-11.3); RBC Red Blood Cell Count 3.15 M/uL (3.86-4.86)
[2022-11-09 11:37] LABS: Magnesium 1.8 mg/dL (1.6-2.4); Potassium 3.3 mmol/L (3.5-5.1)
--- NOTE | 2022-11-09 14:24 | PN ---
Subjective: The patient lying in bed. No new acute event. Feels much better today. Objective: Vital Signs: Temperature 97, pulse 76, respirations 16, blood pressure 164/70. Lungs: Basal crackles. Heart: S1, S2. Regular. Abdomen: Soft, nontender. Bowel sounds present. Extremity: No edema. Laboratory Data: Shows WBC 11.5, hemoglobin 8.8, platelets 541. Chemistry shows BUN of 15, creatini ne 0.8, albumin level is 2.4. UA done on shows 10-20 WBC. Blood cultures negative. Urine cultur es negative. The patient is currently on Unasyn. Assessment And Plan: Urinary tract infection, improving. Patient with wounds to the right heel, shimon p tissue injury, buttock area deep tissue injury and moisture-associated dermatitis, plantar metatars al head wound and 5th metatarsal unstageable wound, left first toe ulcer. Continue current treatment . No other recommendation at this time. We will follow the patient as needed. NF/MODL Voice ID: [id number] Report ID: [id number]
[2022-11-09 16:17] VITALS: BP 172/77; TEMP 97.5
== END 2022-11-09 16:15 | DRG 312 ==
LOC: ER 12:42 → ERHOLD 15:58 → 2ND 11-07 10:24 → OBSVTOIN 11-07 18:33
PROVIDERS: ADMIT Hospitalist; ATTEND Hospitalist
DX: R55 Syncope and collapse (principal); N39.0 Urinary tract infection, site not specified; E44.0 Moderate protein-calorie malnutrition; I10 Essential (primary) hypertension; L30.9 Dermatitis, unspecified; L89.892 Pressure ulcer of other site, stage 2; L89.326 Pressure-induced deep tissue damage of left buttock; L89.316 Pressure-induced deep tissue damage of right buttock; L89.616 Pressure-induced deep tissue damage of right heel; D63.8 Anemia in other chronic diseases classified elsewhere; F03.90 Unspecified dementia, unspecified severity, without behavioral disturbance, psychotic disturbance, mood disturbance, and anxiety; D72.829 Elevated white blood cell count, unspecified; R07.9 Chest pain, unspecified; R53.1 Weakness; Z88.8 Allergy status to other drugs, medicaments and biological substances; Z68.21 Body mass index [BMI] 21.0-21.9, adult; Z79.899 Other long term (current) drug therapy; Z20.822 Contact with and (suspected) exposure to COVID-19
CPT/HCPCS: 0240U; 36415; 70450; 71045; 80048; 80053; 80061; 80076; 81003; 81015; 83605; 83690; 83735; 83880; 84484; 85025; 85610; 87040; 87086; 87088; 93005; 93306; 93880; 96365; 96366; 96375; 97161; 97530; 99285; G0378; J0295; J1650; J3370; J3475; J7030; J7040; J7050